=== PATIENT | female | born 1955 | race Caucasian/White ===

== ENCOUNTER 2021-11-22 02:30 | Outpatient (CLI) | payer MEDICARE, SELFPAY ==
--- NOTE | 2021-11-22 08:30 | DI.US_ITS ---
Exam(s) US THYROID EXAM: US THYROID CLINICAL HISTORY: Evaluate partial thyroid; possible nodules,hypothyroidism,s/p surgery,e03.9. TECHNIQUE: Ultrasound thyroid performed using standard protocol. COMPARISON: No exams were available for comparison FINDINGS: This patient has agenesis of the left thyroid lobe. The right thyroid lobe size is upper normal. RIGHT THYROID LOBE: Measures 1.8 cm AP x 2.0 cm wide x 4.8 cm craniocaudal There are 2 findings in the right lobe, both above the midline. Both are benign appearance. The 1st is what is probably a small colloid cyst measuring 0.3 x 0.2 x 0.2 cm The 2nd finding is a solid nodule measuring 0.5 x 0.3 x 0.4 cm This nodule is solid-2 points This nodule exhibits smooth margins-0 points This nodule is wider than taller in the transverse plane-0 points This nodule exhibits isoechoic solid component-1 point This nodule does not contain internal echogenic foci-1 point Therefore, total points for this nodule =3 Therefore this nodule is TiRads 3 category. LYMPH NODES: No significant adenopathy. IMPRESSION: 1. Benign-appearing 0.5 x 0.3 x 0.4 cm solid nodule in the right lobe. TiRads: 3 Appropriate follow-up is repeat ultrasound in 1 year. 2. 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 3. There is no significant lymphadenopathy. DATA REPOSITORY:
== END 2021-11-22 02:50 ==
PROVIDERS: PCP Student in an Organized Health Care Education/Training Program; Visit Provider Student in an Organized Health Care Education/Training Program
DX: E03.9 Hypothyroidism, unspecified (principal); Z98.890 Other specified postprocedural states; E04.1 Nontoxic single thyroid nodule
CPT/HCPCS: 76536

== ENCOUNTER 2021-12-05 03:01 | Outpatient (CLI) | payer MEDICARE, SELFPAY ==
[2021-12-05 08:19] LABS: Abs Immature Grans 0.01 10^3/uL (0.0-0.06); Absolute Basophil Count 0.01 10^3/uL (0.0-0.2); Absolute Eosinophil Count 0.08 10^3/uL (0.0-0.7); Absolute Lymphocyte Count 0.87 10^3/uL (1.2-3.4); Absolute Neutrophil Count 1.68 10^3/uL (1.2-6.7); Basophils % 0.3; Eosinophils % 2.7; HCT 40.6 % (36.0-46.0); HGB 13.3 g/dL (11.2-15.7); Immature Grans % 0.3; Lymphocytes % 29.5; MCH 31.9 pg (27.0-33.0); MCHC 32.8 % (32.0-36.0); MCV 97.4 fL (80-95); MPV 9.8 fL (8.0-11.0); Monocytes % 10.2; Nucleated RBC 0 %; Platelet Count 226 10^3/uL (130-400); RBC 4.17 10^6/uL (3.93-5.22); RDW-SD 46.5 fL; WBC 2.95 10^3/uL (4.4-10.8)
[2021-12-05 08:26] LABS: ESR 1 mm/hr (0-30)
[2021-12-05 09:34] LABS: TSH (W/Ref FT4) 2.29 uIU/mL (0.36-3.74)
[2021-12-05 17:24] LABS: CRP, High Sensitivity <0.34 mg/L (See Note)
[2021-12-05 17:39] LABS: T3,Free 4.3 pg/mL (2.8-5.3)
[2021-12-06 15:07] LABS: Calculated LDL 117 mg/dL (<100); Cholesterol 201 mg/dL (<200); HDL Cholesterol 62 mg/dL (40-60); Triglyceride 113 mg/dL (<150)
== END 2021-12-05 03:02 | disposition home or self-care (01) ==
LOC: LBO 03:01
PROVIDERS: PCP Student in an Organized Health Care Education/Training Program; Visit Provider Student in an Organized Health Care Education/Training Program
DX: E03.9 Hypothyroidism, unspecified (principal); E04.1 Nontoxic single thyroid nodule; M31.6 Other giant cell arteritis; Z86.19 Personal history of other infectious and parasitic diseases
CPT/HCPCS: 36415; 80061; 85652; 86141; 84443; 84481; 85025

== ENCOUNTER → 2022-03-28 00:50 | Outpatient (CLI) | payer MEDICARE, SELFPAY ==
--- OUTSIDE RECORDS SUMMARY | 2022-03-28 01:02 | XMS_ITS | Encounter Summary ---
:1955 Author Organization [facility] Address [address] [place] [address] Care Team Providers Name Role Phone Juanita Prescott MD Primary Care Provider Encounter Details Date Type Department Care Team Description 07/02/2005 Before PRISM Converted [facility] - Debbie Mueller oel Visit ([place]) Maple conversion MD Thomas [address] [address] [address] [place] [address] Social History Tobacco Use Types Packs/Day Years Used Date Never Assessed Sex Assigned at Date Recorded Not on file documented as of this encounter Progress Notes Mike Mueller MD - 11/07/2009 1908 EST DIVISION OF ENDOCRINOLOGY PROGRESS/FOLLOWUP NOTE - 07/02/2005 Ms. 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 She has been followed on thyroid suppression, with shrinkage of this over a period of years. However, she recently felt intermittent jitteriness and ???hyperness,?? and stopped her Cytomel, remaining only on 88 mcg of Synthroid, and felt better. We had a debate as to whether or not she should continue or not, and she would like to try a smoother transition, being on Synthroid alone. I have given her a prescription for 100 mcg rather than 88 mcg to try to for six weeks, and then we will evaluate her symptomatology. She is also here for ult rasonography. She has no symptoms other than the above, with no tachycardia, palpitations, excessive perspiration,etc. OBJECTIVE: On physical exam today, height is 5 feet 2?? inches, blood pressure 134/92, and pulse is 98. She refused to be weighed today. No exophthalmos or proptosis. She has a pretty normal-feeling thyroid gland. No tremor. Normal deep tendon reflexes, with no hung-up relaxation phase. Normal skin temperature, texture and moisture. She has a multinodular goiter and thyroiditis, and a previously-biopsied right lobe with congenital absence of the left lobe. Her last thyroid tests done in December showed that her T3 was slightly elevated at 189 ng/dl (this is not unusual for patients taking T3). Her T4 was in the normal range at 0.7 mcg/dl (normal in that lab was 0.58-1.7), with a TSH which is likewise normal at 1.81 micro international units/mL. Repeat ultrasound today shows that there is basically not much difference in her thyroid,except for it getting a little bit smaller. Even the nodules are smaller than previously noted. The right lobe measures 4.3 x 1.5 x 1.4 cm, with multiple small, hypoechoic areas within them measuring less than 0.8cm. The left lobe is not seen. The largest and most dominant nodule measures 0.8 cm. This, compared t o the previous study, shows that the gland is somewhat smaller. It measured 6.4 x 1.5 x 1.7 cm on nosuppression. The nodules are basically unchanged. PLAN: At this point, we will see how she does on T4 alone. We will talk in about six weeks, after she has repeat blood tests, to determine if she will stay on T4 alone or go back on the combination of T4 and T3. Signed by Mike Mueller MD 07/15/2005 12:28 Christine Mueller MDNov[facility] Health Presbyterian Medical CenterAssociate Professor of MedicineMike Mueller MD Mike Mueller MD [facility] core stripper D: - Mike Mueller MD P - sa Job ID: Document ID: [id number] cc: MD Brendan Jiménez PA documented in this encounter Plan of Treatment Not on filedocumented as of this encounter Visit Diagnoses Not on filedocumented in this encounter Care Teams Hospice Aide Relationship Specialty Start Date End Date Juanita Prescott MD PCP - General 11/01/[address] [place] [phone] documented as of this encounter
--- OUTSIDE RECORDS SUMMARY | 2022-03-28 01:02 | XMS_ITS | Encounter Summary ---
:1955 Author Organization [facility] Address [address] [place] [address] Care Team Providers Name Role Phone Juanita Prescott MD Primary Care Provider Encounter Details Date Type Department Care Team Description 09/11/2010 Abstract Used for ABSTRACTING Data Juanita Prescott MD [phone] [address] [place], [place] [phone] (Wo rk) Social History Tobacco Use Types Packs/Day Years Used Date Never Assessed Sex Assigned at Date Recorded Not on file documented as of this encounter Plan of Treatment Not on filedocumented as of this encounter Visit Diagnoses Not on filedocumented in this encounter Historical Medications This list may reflect changes made after this encounter. Medication Sig Dispensed Refills Start Date End Date aspirin 81 mg EC tablet Take 81 mg by mouth 0 daily. ERGOCALCIFEROL, VITAMIN Take 1 Tab by mouth 2 0 0 09/11/2010 D2, (VITAMIN D ORAL) times daily. B Complex Vitamins Take 1 Tab by mouth 0 09/11/19 11 (VITAMIN B COMPLEX) Tab daily. added in this encounter Care Teams Caving Guide Relationship Specialty Start Date End Date Juanita Prescott MD PCP - General 11/01/09 [address] [place] [phone] documented as of this encounter
--- OUTSIDE RECORDS SUMMARY | 2022-03-28 01:02 | XMS_ITS | Encounter Summary ---
:1955 Author Organization [facility] Address [address] [place] [address] Care Team Providers Name Role Phone Juanita Prescott MD Primary Care Provider Encounter Details Date Type Department Care Team Description 04/23/2004 Hospital Encounter [facility] - Mike Mueller MD [address] [address] [address] [place] [address] (Wo rk) Social History Tobacco Use Types Packs/Day Years Used Date Never Assessed Sex Assigned at Date Recorded Not on file documented as of this encounter Plan of Treatment Not on filedocumented as of this encounter Procedures Procedure Name Priority Date/Time Associated Diagnosis Comme nts T3, TOTAL Routine 04/23/2004 13:40 EDT Results for this procedure are i n the results section . TSH Routine 04/23/2004 13:40 EDT Results for this procedure are i n the results section . T4 FREE Routine 04/23/2004 13:40 EDT Results for this procedure are i n the results section . documented in this encounter Results TSH (04/23/2004 13:40 EDT) Pathologist Sig nature TSH 0.69 0.35 - 5.50 uIU/ml [facility] Specimen Performing Organization Address City/State/ZIP Code Phon e Number [facility] [address] [place] [address] SERVICES [facility] [address] [place] [address] T3, TOTAL (04/23/2004 13:40 EDT) Pathologist Sig nature T3, Total 136 60 - 181 ng/dl [facility] Specimen Performing Organization Address City/[facility] Code Phon e Number [facility] [address] [place] [address] SERVICES [facility] [address] [place] [address] T4 FREE (04/23/2004 13:40 EDT) Pathologist Sig nature Free T4 1.0 0.8 - 1.8 ng/dl [facility] Specimen Performing Organization Address City/[facility] Phon e Number [facility] [address] [place] [address] SERVICES [facility] [address] [place] [address] documented in this encounter Visit Diagnoses Not on filedocumented in this encounter Care Teams Slug Press Operator Relationship Specialty Start Date End Date Juanita Prescott MD PCP - General 11/01/[address] [place] [phone] documented as of this encounter
--- OUTSIDE RECORDS SUMMARY | 2022-03-28 01:02 | XMS_ITS | Encounter Summary ---
:1955 Author Organization [facility] Address [address] [place] [address] Care Team Providers Name Role Phone Unavailable Primary Care Provider Unavailable Encounter Details Date Type Department Care Team Description 01/31/2005 Hospital Encounter [facility] - Julia Pan, ROMAN Other [address] [facility] [address] [place], [place] [phone] [place] [phone] Social History Tobacco Use Types Packs/Day Years Used Date Never Assessed Sex Assigned at Date Recorded Not on file documented as of this encounter Discharge Disposition Disposition Code Departure Means Destination Auto Discharge documented in this encounter Plan of Treatment Not on filedocumented as of this encounter Visit Diagnoses Not on filedocumented in this encounter
--- OUTSIDE RECORDS SUMMARY | 2022-03-28 01:02 | XMS_ITS | Encounter Summary ---
:1955 Author Organization [facility] Address [address] [place] [address] Care Team Providers Name Role Phone Juanita Prescott MD Primary Care Provider Encounter Details Date Type Department Care Team Description 12/03/2007 Results Only [facility] - Kev Singh MD conversion [address] [place] [phone] Social History Tobacco Use Types Packs/Day Years Used Date Never Assessed Sex Assigned at Date Recorded Not on file documented as of this encounter Plan of Treatment Not on filedocumented as of this encounter Procedures Procedure Name Priority Date/Time Associated Diagnosis Comme [facility] SURGICAL PATHOLOGY Routine 12/03/2007 0:00 EDT Re sults for this procedure are i n the results section. documented in this encounter Results SURGICAL PATHOLOGY (12/03/2007 0:00 EDT) Pathology Report: SURGICAL PATHOLOGY REPORT [facility] Reports generated via electronic interface contain wes ginal data; LAB however they are lacking the format of the original re port. Caution should be taken when reading/interpreting unfo rmatted reports. Name: ? ME BARBIE LAM ? Accession #: ? [id number] ? : ? 1955 (Age: 52) ??F ? Collect Date: ? 12/03/2007 ? Location: ? [facility] ? Receive Date: ? 008 ? Provider: KARON REINA MD Copy to: ALEXEY GARCIA ? Final Pathologic Diagnosis: A. ?Stomach, body, biopsy: 1. ?Superficial fragments of gastric muco sa without significant abnormality. 2. ? Helicobacter pylori-like organisms are absent on H+E stain. B. ?Gastroesophageal junction, biopsy: 1. ?Squamous mucosa without significant a bnormality. Document reviewed and electronically signed by: rGeta Diggs MD Report ??Date: 12/07/2007 16:40 By the signature above, the attending physician certif ies that he/she has personally conducted a gross and/or microscopic examin ation of the described specimens and rendered or confirmed the above diagnosi s. Specimen(s) Received: A. ?Bx gastric body (#1) B. ? GE junction (#2) Clinical History: ? Persistent GERD Gross Description: ? Received in Hollande' s fixative labelled [place] and gastric body is a murphy-pink 0.3 x 0.2 x 0. 2 cm soft tissue fragment. ??The specimen is entirely submitted as (A). Received in Hollande's fixative labelled [place] and GE junction is a murphy-pink 0.2 x 0.2 x 0.2 cm soft tissue fragment. ??Th e specimen is entirely submitted as (B). ??(Fredy Zheng/doroteo End of Report Specimen Performing Organization Address City/State/ZIP Code Phon e Number [facility] [address] [place] [address] SERVICES [facility] [address] [place] [address] documented in this encounter Visit Diagnoses Not on filedocumented in this encounter Care Teams Teacher Of The Deaf Relationship Specialty Start Date End Date Juanita Prescott MD PCP - General 11/01/[address] [place] [phone] documented as of this encounter
--- OUTSIDE RECORDS SUMMARY | 2022-03-28 01:02 | XMS_ITS | Encounter Summary ---
:1955 Author Organization [facility] Address [address] [place] [address] Care Team Providers Name Role Phone Juanita Prescott MD Primary Care Provider Encounter Details Date Type Department Care Team Description 08/28/2006 Hospital Encounter [facility] - Weston Watson MD [address] [address] [address] [place] [address] (Wo rk) Social History Tobacco Use Types Packs/Day Years Used Date Never Assessed Sex Assigned at Date Recorded Not on file documented as of this encounter Plan of Treatment Not on filedocumented as of this encounter Procedures Procedure Name Priority Date/Time Associated Diagnosis Comme nts T3, TOTAL Routine 08/28/2006 12:33 EST Results for this procedure are i n the results section . TSH Routine 08/28/2006 12:33 EST Results for this procedure are i n the results section . T4 FREE Routine 08/28/2006 12:33 EST Results for this procedure are i n the results section . documented in this encounter Results TSH (08/28/2006 12:33 EST) Pathologist Sig nature TSH 1.34 0.35 - 5.00 uIU/mL [facility] Specimen Performing Organization Address City/State/ZIP Code Phon e Number [facility] [address] [place] [address] SERVICES [facility] [address] [place] [address] T3, TOTAL (08/28/2006 12:33 EST) Pathologist Sig nature T3, Total 105 60 - 181 ng/dL [facility] Specimen Performing Organization Address City/[facility]/ZIP Code Phon e Number [facility] [address] [place] [address] SERVICES [facility] [address] [place] [address] T4 FREE (08/28/2006 12:33 EST) Pathologist Sig nature Free T4 1.0 0.8 - 1.8 ng/dL [facility] Specimen Performing Organization Address City/[facility] Code Phon e Number [facility] [address] [place] [address] SERVICES [facility] [address] [place] [address] documented in this encounter Visit Diagnoses Not on filedocumented in this encounter Care Teams Adolescent Counselor Relationship Specialty Start Date End Date Juanita Prescott MD PCP - General 11/01/[address] [place] [phone] documented as of this encounter
--- OUTSIDE RECORDS SUMMARY | 2022-03-28 01:02 | XMS_ITS | Encounter Summary ---
:1955 Author Organization [facility] Address [address] [place] [address] Care Team Providers Name Role Phone Unavailable Primary Care Provider Unavailable Encounter Details Date Type Department Care Team Description 01/18/2008 Hospital Encounter [facility] - Mike Mueller MD [address] [address] [address] [place] [phone] (Wo rk) Social History Tobacco Use Types Packs/Day Years Used Date Never Assessed Sex Assigned at Date Recorded Not on file documented as of this encounter Discharge Disposition Disposition Code Departure Means Destination Auto Discharge documented in this encounter Plan of Treatment Not on filedocumented as of this encounter Procedures Procedure Name Priority Date/Time Associated Diagnosis Comme nts T3, TOTAL Routine 11/08/2008 11:14 Results for this EST procedure are i n the results section. TSH Routine 11/08/2008 11:14 Results for this EST procedure are i n the results section. THYROID ANTIBODIES Routine 11/08/2008 11:14 Resul ts for this EST procedure are i n the results section. T4 FREE Routine 11/08/2008 11:14 Results for this EST procedure are i n the results section. documented in this encounter Results THYROID ANTIBODIES (11/08/2008 11:14 EST) Pathologist Sig nature Thyroglobulin Ab <20 0 - 40 IU/mL [facility] Thyroid Peroxidase Ab <10 <35 IU/mL [facility] Specimen Performing Organization Address City/State/ZIP Code Phon e Number [facility] [address] [place] [address] SERVICES [facility] [address] [place] [address] TSH (11/08/2008 11:14 EST) Pathologist Sig nature TSH 3.46 0.35 - 5.00 uIU/ml [facility] Specimen Performing Organization Address City/[facility]/ZIP Code Phon e Number [facility] [address] [place] [address] SERVICES [facility] [address] [place] [address] T3, TOTAL (11/08/2008 11:14 EST) Pathologist Sig nature T3, Total 94 60 - 181 ng/dL [facility] Specimen Performing Organization Address [facility] Phon e Number [facility] [address] [place] [address] SERVICES [facility] [address] [place] [address] T4 FREE (11/08/2008 11:14 EST) Pathologist Sig nature Free T4 1.1 0.8 - 1.8 ng/dL [facility] Specimen Performing Organization Address City/[facility]/ZIP Code Phon e Number [facility] [address] [place] [address] SERVICES [facility] [address] [place] [address] documented in this encounter Visit Diagnoses Not on filedocumented in this encounter
--- OUTSIDE RECORDS SUMMARY | 2022-03-28 01:02 | XMS_ITS | Encounter Summary ---
:1955 Author Organization [facility] Address [address] [place] [address] Care Team Providers Name Role Phone Juanita Prescott MD Primary Care Provider Encounter Details Date Type Department Care Team Description 03/15/2003 Hospital Encounter [facility] - Mike Mueller MD [address] [address] [address] [place] [address] (Wo rk) Social History Tobacco Use Types Packs/Day Years Used Date Never Assessed Sex Assigned at Date Recorded Not on file documented as of this encounter Plan of Treatment Not on filedocumented as of this encounter Procedures Procedure Name Priority Date/Time Associated Diagnosis Comme nts THYROID AB Routine 03/15/2003 16:16 EDT Results for this procedure are i n the results section . TSH Routine 03/15/2003 16:16 EDT Results for this procedure are i n the results section . T4 FREE Routine 03/15/2003 16:16 EDT Results for this procedure are i n the results section . documented in this encounter Results TSH (03/15/2003 16:16 EDT) Pathologist Sig nature TSH 2.05 0.35 - 5.50 uIU/ml [facility] Specimen Performing Organization Address City/State/ZIP Code Phon e Number [facility] [address] [place] [address] SERVICES [facility] [address] [place] [address] THYROID AB (03/15/2003 16:16 EDT) Pathologist Sig nature Microsomal Ab <100 <100 Dils [facility] Thyroglobulin Ab <10 <10 Dils [facility] Specimen Performing Organization Address City/[facility]/ZIP Code Phon e Number [facility] [address] [place] [address] SERVICES [facility] [address] [place] [address] T4 FREE (03/15/2003 16:16 EDT) Pathologist Sig nature Free T4 1.0 0.8 - 1.8 ng/dl [facility] Specimen Performing Organization Address City/[facility]/ZIP Code Phon e Number [facility] [address] [place] [address] SERVICES [facility] [address] [place] [address] documented in this encounter Visit Diagnoses Not on filedocumented in this encounter Care Teams Appraiser Auditor Relationship Specialty Start Date End Date Juanita Prescott MD PCP - General 11/01/09 [address] [place] [phone] documented as of this encounter
--- OUTSIDE RECORDS SUMMARY | 2022-03-28 01:02 | XMS_ITS | Encounter Summary ---
:1955 Author Organization [facility] Address [address] [place] [address] Care Team Providers Name Role Phone Unavailable Primary Care Provider Unavailable Encounter Details Date Type Department Care Team Description 06/20/2004 Hospital Encounter [facility] - Mike Mueller MD [address] [address] [address] [place] [phone] (Wo rk) Social History Tobacco Use Types Packs/Day Years Used Date Never Assessed Sex Assigned at Date Recorded Not on file documented as of this encounter Discharge Disposition Disposition Code Departure Means Destination Auto Discharge documented in this encounter Plan of Treatment Not on filedocumented as of this encounter Procedures Procedure Name Priority Date/Time Associated Diagnosis Comme nts FUNGAL CULTURE, Routine 01/31/2005 13:25 Results for this SKIN, HAIR OR NAIL EDT procedure are in the results section. documented in this encounter Results FUNGAL CULTURE, SKIN, HAIR OR NAIL (01/31/2005 13:25 EDT) Specimen Description Nail [facility] Result Mixed moulds, not [facility] Dermatophytes, LAB consult laboratory for further evaluation. Report Status Final [facility] [id number] [facility] Specimen Performing Organization Address City/State/ZIP Code Phon e Number [facility] [address] [place] [address] SERVICES [facility] [address] [place] [address] documented in this encounter Visit Diagnoses Not on filedocumented in this encounter
--- OUTSIDE RECORDS SUMMARY | 2022-03-28 01:02 | XMS_ITS | Encounter Summary ---
:1955 Author Organization [facility] Address [address] [place] [address] Care Team Providers Name Role Phone Juanita Prescott MD Primary Care Provider Encounter Details Date Type Department Care Team Description 12/05/2021 Lab Requisition [facility] Outr Resulting Lab, Pathology & Laboratory Provider [facility] [address] [place], [place] [phone] Social History Tobacco Use Types Packs/Day Years Used Date Never Assessed Sex Assigned at Date Recorded Not on file documented as of this encounter Plan of Treatment Not on filedocumented as of this encounter Procedures Procedure Name Priority Date/Time Associated Comments Diagnosis HIGH SENSITIVITY Routine 12/05/2021 8:10 Results for this C-REACTIVE PROTEIN EDT procedure are in (CARDIOVASCULAR the results DISEASE) section. T3 FREE Routine 12/05/2021 8:10 Results for this EDT procedure are i n the results section. documented in this encounter Results T3 FREE (12/05/2021 8:10 EDT) Pathologist Sig nature T3, Free 4.3 2.8 - 5.3 pg/mL [facility] Specimen Blood - Venous blood (substance) Performing Organization Address City/State/ZIP Code Phon e Number [facility] [address] [place] [address] SERVICES HIGH SENSITIVITY C-REACTIVE PROTEIN (CARDIOVASCULAR DISEASE) (12/05/2021 8:10 EDT) High Sensitivity <0.34 See Note [facility] CRP Comment: mg/L [facility] Reference Range: SERVICES ??Low Risk: ? <1.0 mg/L ??Average Risk: ?? 1.0 - 3.0 mg/L ??High Risk: ?>3.0 mg/L ??Indeterminate*: >10.0 mg/L ??*May be an indication of another source of inflamma tion or infection Specimen Blood - Venous blood (substance) Performing Organization Address City/State/ZIP Code Phon e Number [facility] [address] [place] [address] SERVICES documented in this encounter Visit Diagnoses Not on filedocumented in this encounter Care Teams Brand Coordinator Relationship Specialty Start Date End Date Juanita Prescott MD PCP - General 11/01/09 [address] [place] [phone] documented as of this encounter
--- OUTSIDE RECORDS SUMMARY | 2022-03-28 01:02 | XMS_ITS | Encounter Summary ---
:1955 Author Organization [facility] Address [address] [place] [address] Care Team Providers Name Role Phone Juanita Prescott MD Primary Care Provider Encounter Details Date Type Department Care Team Description 04/26/2003 Hospital Encounter [facility] - Mike Mueller MD [address] [address] [address] [place] [address] (Wo rk) Social History Tobacco Use Types Packs/Day Years Used Date Never Assessed Sex Assigned at Date Recorded Not on file documented as of this encounter Plan of Treatment Not on filedocumented as of this encounter Visit Diagnoses Not on filedocumented in this encounter Care Teams Data Assistant Relationship Specialty Start Date End Date Juanita Prescott MD PCP - General 11/01/09 [address] [place] [address] documented as of this encounter
--- OUTSIDE RECORDS SUMMARY | 2022-03-28 01:02 | XMS_ITS | Encounter Summary ---
:1955 Author Organization [facility] Address [address] [place] [address] Care Team Providers Name Role Phone Juanita Prescott MD Primary Care Provider Encounter Details Date Type Department Care Team Description 04/26/2003 Results Only [facility] Mike Mueller, Endocrinology - Dustin guzman MD [address] [facility] [address] [place], [place] [address] [address] [place] [address] (Wo rk) Social History Tobacco Use Types Packs/Day Years Used Date Never Assessed Sex Assigned at Date Recorded Not on file documented as of this encounter Plan of Treatment Not on filedocumented as of this encounter Procedures Procedure Name Priority Date/Time Associated Diagnosis Comme nts TSH Routine 04/26/2003 16:41 EDT Results for this procedure are i n the results section . T4 FREE Routine 04/26/2003 16:41 EDT Results for this procedure are i n the results section . documented in this encounter Results TSH (04/26/2003 16:41 EDT) Pathologist Sig nature TSH 0.48 0.35 - 5.50 uIU/ml [facility] Specimen Performing Organization Address City/State/ZIP Code Phon e Number [facility] [address] [place] [address] SERVICES [facility] [address] [place] [address] T4 FREE (04/26/2003 16:41 EDT) Pathologist Sig nature Free T4 1.2 0.8 - 1.8 ng/dl [facility] Specimen Performing Organization Address City/State/ZIP Code Phon e Number [facility] [address] [place] [address] SERVICES [facility] [address] [place] [address] documented in this encounter Visit Diagnoses Not on filedocumented in this encounter Care Teams Livestock Laborer Relationship Specialty Start Date End Date Juanita Prescott MD PCP - General 11/01/09 [address] [place] [address] documented as of this encounter
--- OUTSIDE RECORDS SUMMARY | 2022-03-28 01:02 | XMS_ITS | Encounter Summary ---
:1955 Author Organization [facility] Address [address] [place] [address] Care Team Providers Name Role Phone Unavailable Primary Care Provider Unavailable Encounter Details Date Type Department Care Team Description 05/25/2004 - Hospital Encounter [facility] Mike Mueller 05/26/2004 Radiology - [facility] MD Thomas La Salle [address] [facility] [address] [place] [address] [facility] [phone] [place] [address] Social History Tobacco Use Types Packs/Day Years Used Date Never Assessed Sex Assigned at Date Recorded Not on file documented as of this encounter Discharge Disposition Disposition Code Departure Means Destination Home or Self Care documented in this encounter Plan of Treatment Not on filedocumented as of this encounter Procedures Procedure Name Priority Date/Time Associated Diagnosis Comme nts THYROID AB Routine 06/20/2004 9:45 EDT Results for this procedure are i n the results section. T3, TOTAL Routine 06/20/2004 9:45 EDT Results for this procedure are i n the results section. TSH Routine 06/20/2004 9:45 EDT Results for this procedure are i n the results section. T4 FREE Routine 06/20/2004 9:45 EDT Results for this procedure are i n the results section. RAD US GUIDANCE Routine 05/25/2004 15:19 Results for this BIOPSY FNA THYROID EDT procedure are in the results section. documented in this encounter Results TSH (06/20/2004 9:45 EDT) Pathologist Sig nature TSH 0.81 0.35 - 5.50 uIU/ml [facility] Specimen Performing Organization Address City/State/ZIP Code [facility] e Number [facility] [address] [place] [address] SERVICES [facility] [address] [place] [address] THYROID AB (06/20/2004 9:45 EDT) Pathologist Sig nature Microsomal Ab <100 <100 Dils [facility] Thyroglobulin Ab <10 <10 Dils [facility] Specimen Performing Organization Address City/[facility]/ZIP Code Phon e Number [facility] [address] [place] [address] SERVICES [facility] [address] [place] [address] T3, TOTAL (06/20/2004 9:45 EDT) Pathologist Sig nature T3, Total 158 60 - 181 ng/dl [facility] Specimen Performing Organization Address [facility] Code Phon e Number [facility] [address] [place] [address] SERVICES [facility] [address] [place] [address] T4 FREE (06/20/2004 9:45 EDT) Pathologist Sig nature Free T4 1.2 0.8 - 1.8 ng/dl [facility] Specimen Performing Organization Address [facility] Phon e Number [facility] [address] [place] [address] SERVICES [facility] [address] [place] [address] RAD US GUIDANCE BIOPSY FNA THYROID (05/25/2004 15:19 EDT) Anatomical Region Laterality Modality Other Specimen Narrative [facility] - 05/09/2009 17 :04 EDT U/S GUIDED THYROID BX W/SEDATION- ??CONGENITAL ABSENCE OF LT LOBE. RT L OBE ? INCREASE SIZE OF NODULE (COMPLEX) ?(STRAIGHT TO RADIOLOGY) ULTRASOUND GUIDED THYROID BIOPSY 4 FINDINGS: Scans of the thyroid show sandra ral hypoechoic nodules containing solid material in the lower right thyroi d lobe. The outside thyroid gland study suggested that these hypoechoic re gions were part of a larger nodule. That does not appear to be the c ase on today's examination. These appear to be separate lesions. One of th e lesions in the medial portion of the lower pole of the right thyroid l obe was localized and a total of 9 passes were made into this nodule, 6 u sing 25 gauge spinal needles and 3 using 22 gauge spinal needles. The mat erial was given to cytology. The initial impression of the material was t hat it was likely a hemorrhagic cyst. No complications were encountered. IMPRESSION: Ultrasound guided FNA of rig ht lower pole thyroid nodule having cystic areas, but also containing solid material. A hemorrhagic cyst is a possibility for ea ch of these nodules. See above. D 05/25/04 T 05/28/04 /axel Procedure Note Cayetano Menard, DO - 05/09/2009 U/S GUIDED THYROID BX W/SEDATION- CONGEN ITAL ABSENCE OF LT LOBE. RT L OBE ? INCREASE SIZE OF NODULE (COMPLEX) (STRAIGHT TO RADIOLOGY) ULTRASOUND GUIDED THYROID BIOPSY 4 FINDINGS: Scans of the thyroid show sandra ral hypoechoic nodules containing solid material in the lower right thyroi d lobe. The outside thyroid gland study suggested that these hypoechoic re gions were part of a larger nodule. That does not appear to be the c ase on today's examination. These appear to be separate lesions. One of th e lesions in the medial portion of the lower pole of the right thyroid l obe was localized and a total of 9 passes were made into this nodule, 6 u sing 25 gauge spinal needles and 3 using 22 gauge spinal needles. The mat erial was given to cytology. The initial impression of the material was t hat it was likely a hemorrhagic cyst. No complications were encountered. IMPRESSION: Ultrasound guided FNA of rig ht lower pole thyroid nodule having cystic areas, but also containing solid material. A hemorrhagic cyst is a possibility for ea ch of these nodules. See above. D 05/25/04 T 05/28/04 /axel Performing Organization Address City/State/ZIP Code Phon e Number [facility] [address] [facility] [address] [facility] [address] [place], [place] [address] documented in this encounter Visit Diagnoses Not on filedocumented in this encounter
--- OUTSIDE RECORDS SUMMARY | 2022-03-28 01:02 | XMS_ITS | Encounter Summary ---
:[address] [facility] Address [address] [place] [address] Care Team Providers Name Role Phone Juanita Prescott MD Primary Care Provider Encounter Details Date Type Department Care Team Description 08/22/2005 Before PRISM Converted [facility] - Debbie Mueller oel Visit ([place]) Maple conversion MD Thomas [address] [address] [address] [place] [address] Social History Tobacco Use Types Packs/Day Years Used Date Never Assessed Sex Assigned at Date Recorded Not on file documented as of this encounter Progress Notes Mike Mueller MD - 11/09/2009 2118 EST DIVISION OF ENDOCRINOLOGY PROGRESS/FOLLOWUP NOTE - 08/22/2005 SUBJECTIVE: Ms. Briones comes in today. I finally convinced her to stop taking her Cytomel for her hypothyroidism, as it was causing tachycardia. We increased her from 88 to 100 mcg of Synthroid, and the tachycardia has diminished tremendously, but she still feels very tired, and has the other very vague sympt oms that she now admits are probably not due to her thyroid. I feel she will do better on T4 replacement alone rather than on T3, as dictated in her last visit, at which time we elected not to do any blood work until she came back today. OBJECTIVE: She weighs 126, blood pressure is 118/68, and pulse is 100! She has no exophthalmos or proptosis. Nopalpable thyroid tissue and no tremor. Normal deep tendon reflexes with no hung up relaxation phase. ASSESSMENT/PLAN: My impression is that she is euthyroid. I am not sure about her tachycardia. We will assess T4 and TSH in the lab and call her if a change is necessary in her regimen. If everything seems to be normal,I will see her in a year. Signed by Mike Mueller MD 09/17/2005 17:13 Christine Mueller MDFormerly [facility] CenterAssociate Professor of MedicineMike Mueller MD Mike Mueller MD [facility] refuse collector supervisor D: - Mike Mueller MD A - dm Job ID: tape Document ID: [id number] cc: Radha Og MD 08/22/2005 11:11 T3, Total 178 ng/dl Final * 08/22/2005 11:11 T4, Free 0.9 ng/dl 0.8-1.8 Final * 08/22/2005 11:11 TSH 2.20 uIU/m... 0.35-5.50 Final * documented in this encounter Plan of Treatment Not on filedocumented as of this encounter Visit Diagnoses Not on filedocumented in this encounter Care Teams Coat Joiner Lockstitch Relationship Specialty Start Date End Date Juanita Prescott MD PCP - General 11/01/[address] [place] [phone] documented as of this encounter
--- OUTSIDE RECORDS SUMMARY | 2022-03-28 01:02 | XMS_ITS | Encounter Summary ---
:1955 Author Organization [facility] Address [address] [place] [address] Care Team Providers Name Role Phone Juanita Prescott MD Primary Care Provider Encounter Details Date Type Department Care Team Description 05/25/2004 Results Only [facility] - Cayet[place] conversion [address] [facility] [address] [place], [place] [address] [place] [phone] (Wo rk) Social History Tobacco Use Types Packs/Day Years Used Date Never Assessed Sex Assigned at Date Recorded Not on file documented as of this encounter Plan of Treatment Not on filedocumented as of this encounter Procedures Procedure Name Priority Date/Time Associated Diagnosis Comme nts CYTOPATHOLOGY Routine 05/25/2004 0:00 EDT Results for this procedure are i n the results section . documented in this encounter Results CYTOPATHOLOGY (05/25/2004 0:00 EDT) Pathology Report: CYTOPATHOLOGY REPORT [facility] Reports generated via electronic interface contain wes ginal data; however they are lacking the format of the original re port. Caution should be taken when reading/interpreting unfo rmatted reports. Name: ? CAMMY LAM ? Accession #: ? [id number] : ? 1955 (Age: 48) ??F ?Collect Date: ? 05/09 Location: ? RAD ? Receive Date: ? 05/28/2004 Provider: ? CAYETANO Moreira* JENNIFER LUX Copy to: ?CUBA OZUNA MD ? CYTOLOGIC DIAGNOSIS: ? Thyroid, right, fine needle aspiration: - Suggestive of benign thyroid nodule. ??See comment. ? COMMENT: ? The specimen is hypocellular, composed of a few groups of thyroid follicular cells in micro- a nd macrofollicular pattern. ??Abundant watery colloid and siderophages are present in the background. ??Ther e is no inflammation present. ??Paucity of the epithelial component preclud es definitive interpretation, but the cytologic features are s uggestive of a benign thyroid nodule. ??(Dr. Davidson)/coco Document reviewed and electronically signed by: ? Alesha Pastrana MD PhD Report Date: ??05/29/2004 09:35 By the signature above, the attending physician certif ies that he/she has personally conducted a gross and/or microscopic examin ation of the described specimens and rendered or confirmed the above diagnosi s. Specimen Type: ? Right Thyroid, Fine Needle Aspiration Clinical History: ? Multiple cystic nodules RLP; ? CA; clinical aylin gnosis code: ??241.1 ? Rapid Interpretation: ? FNA Rt thyroid: Passes 1-3: ??Scant follicul ar epithelium. ??Rare microfollicles. ??Dense colloid. Passes 4-6: ??Siderophages. ??Dense colloid. ??Scant f ollicular cells. Passes 7-9: ??Siderophages. ??Scant follicular cells. ??Dense colloid. ??Defer to permanents. (Carmelo Friedman MD; 05/25/04) ?? Gross Description: ? 12 fixed prepared slides, 11 air dried prepared slides, and 1 tube of Cytolyt were received and processed. ? End of Report Specimen Performing Organization Address City/State/ZIP Code Phon e Number [facility] [address] [place] [address] SERVICES [facility] [address] [place] [address] documented in this encounter Visit Diagnoses Not on filedocumented in this encounter Care Teams End User Consultant Relationship Specialty Start Date End Date Juantia Prescott MD PCP - General 11/01/09 [address] [place] [address] documented as of this encounter
--- OUTSIDE RECORDS SUMMARY | 2022-03-28 01:02 | XMS_ITS | Encounter Summary ---
:1955 Author Organization [facility] [place] [address] Care Team Providers Name Role Phone Ernestina Daniel DO Primary Care Provider Reason for Referral Consultation (Routine) - Authorized Specialty Diagnoses / Procedures Referred By Contact Refer red To Contact Hematology and Diagnoses Leukopenia, unspecified type Ernestina Daniel, [facility] 3k Oncology [address] [phone] Fax: Referral ID Status Reason Start Expiration Visits Visits Date Date Requested Authorized [id number] Authorized Consult, 03/08/2022 03/08/2023 6 6 Test & Treat PCP Updated and/or Approved Encounter Details Date Type Department Care Team Description 03/08/2022 Transcribe Orders eDH Incoming Laureen Daniel , Referrals Ernestina Ramos DO unspecified type [phone] [place] [phone] Social History Tobacco Use Types Packs/Day Years Used Date Never Assessed Sex Assigned at Date Recorded Not on file documented as of this encounter Plan of Treatment Upcoming Encounters Date Type Specialty Care Team Description 04/03/2022 Office Visit Hematology and Oncology Monique Perea MD [facility] HEMATOLOG[facility] [place], [place] [address] (Wo rk) 06/14/2022 Office Visit Dermatology Terrell Galvez MD [facility] [address] [place], [place] [address] (Wo rk) Scheduled Referrals Name Type Priority Associated Diagnoses Order S chedule Referral to Outpatient Referral Routine Leukopenia, Ordered: Hematology and Unspecified Type 2 Oncology documented as of this encounter Visit Diagnoses Diagnosis Leukopenia, unspecified type documented in this encounter Care Teams Non Cdl Driver Relationship Specialty Start Date End Date Ernestina Daniel DO PCP - General Family Medicine 03/08/[address] [place] [address] documented as of this encounter
--- OUTSIDE RECORDS SUMMARY | 2022-03-28 01:02 | XMS_ITS | Encounter Summary ---
:1955 Author Organization [facility] Address [address] [place] [address] Care Team Providers Name Role Phone Juanita Prescott MD Primary Care Provider Encounter Details Date Type Department Care Team Description 09/27/2005 Before [facility] - Yobany Bridges MD Converted Visit Map conversion 111 [facility] ([place]) [address] [place] [id number] [facility] [place] [phone] (Wo rk) Social History Tobacco Use Types Packs/Day Years Used Date Never Assessed Sex Assigned at Date Recorded Not on file documented as of this encounter Consult Notes Mya Bridges MD - 11/08/2009 0523 EST DIVISION OF RHEUMATOLOGY CONSULTATION - CHIEF COMPLAINT: This is the first visit for this 50-year-old lady, who is seen in consultation for Brendan Jhaveri, with chief complaint of multiple different symptoms, possible fibromyalgia. HISTORY OF PRESENT ILLNESS: Patient says her symptoms began in 1992 when she developed fatigue. She had a lab test that showed her white count was a little low , although subsequent CBCs showed a low-normal white count. Her fatigue has worsened over the years. She then developed joint pains. She says she usually wakes up with sore fingers, in particular her left fifth finger at the DIP which feels hard and tender. She also has a lot of low back pain, does stretching for this and has what sounds like degenerative neck arthritis since the age of 32.She has tried Tylenol and ibuprofen over the counter with perhaps some improvement. She also said she had in 1996 cognitive issues . It was hard to process things . She stated that she is usually a quick learner, but she had trouble learning things at work, learning was going slowly and it was hard to retain things . However, over the past year she feels that cognitively sheis some better. Other symptoms include pressure and aching in her left greater than right calves and muscle spasms in the pretibial regions and in the feet and toes. Her whole body is sensitive to cold . She wears a coat in her house. The tips of her fingers throb and burn with cold and the toes are sensitive. She was seen by [facility] in the past who diagnosed her with fibromyalgia and then in November, diagnosed her with chilblains. However, she says she has not had any chilblain lesions since last year. She also states her nails have changed. They look blue at the bases and redat the tips. Her sleep is poor. She wakes frequently. It is hard to fall back asleep. She tried an over the counter sleep medicine but did not like how it felt, although it did help somewhat and has generally preferred to avoid taking a lot of pills and medications. She also complains that her skin is itchy, even without a rash, especially on the arms, but she also does get rashes. She was apparently seen by contract sheltered workshop supervisor who diagnosed her with eczema and she was given topical medicine for this. Current medications: 1. Synthroid 100 mcg daily. 2. Levbid 75 mcg twice a day for irritable bowel. 3. calcium. 4. magnesium and zinc as needed. ALLERGIES: DROPERIDOL CAUSES NECK AND FACIAL MUSCLE SPASMS. Social history: Reveals she is . Is a part-time scanning clerk and homemaker. She does not smoke. Drinks about one or two alcoholic beverages per week. Has two daughters, lives with one of them at home. Past history reveals a congenitally absent left thyroid lobe and she had a partial thyroidectomy versus nodule removed 1977, also a multinodular goiter and thyroiditis. 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 Lymph node removal age 10. Migraines: Although none recently. Right wrist ganglion cyst removed X 2 and irritable bowel syndrome. Family history: Reveals parents with arthritis of an unknown type. Review of systems is negative for constitutional complaints. In addition to what is listed in HPI her eyes are scratchy, feel like there is something in there. She has been given Patanol drops and ointment without help. She was seen by an eye doctor with no diagnosis, and no other abnormality noted. She does have a lot of visual disturbances with floaters and weird peripheral vision. Occasionalsharp chest pains, told that she had costochondral pain. A lot of cramps, gas and bloating related to irritable bowel syndrome which is being helped by hercurrent medicine. No bleeding or diarrhea. Complains of 5-6 months duration of strong smelling urine despite keeping hydrated. Occasional hand tingling, no numbness. Some restless legs at night. She denies depression. OBJECTIVE: Physical exam reveals blood pressure 122/80, pulse 76, respiration 16. Height 62 and ?? inches. No weight is recorded but the patient looks about average weight for her height. Head and neckreveal pupils equal and reactive, extraocular movements intact. Sclerae clear.Conjunctivae pink. Mucous membranes moist. No oral ulcers. No cervical nodes. She does have erythema over the cheeks without sparing of the nasolabial folds with a couple of telangiectasia and one acne-like lesion resemblingrosacea. Lungs are clear. Heart sounds are regular, no rubs. Abdomen: Soft with epigastric tenderness. No organomegaly or masses. Skin in the arms is slightly dry and a little bit red, with a few excoriations. No other rashes are seen. No nail pitting. No dilated capillaryloops. No digital pitting. Nosclerodactyly. Her spine is nontender. Her C-spine has painful range of motion with mild reduction in range of motion in all directions. Shoulders, elbows and wrists were normal with the exception of asmall ganglion cyst overlying the right wrist. She was tender right thumb MCP, but otherwise the joint appeared normal. The remainder of the MCPs were normal. She was tender over the right fourth PIP but there was no synovitis over any of the PIPs. She had small Heberden's nodes bilateral fifth DIPs with tenderness over the left fifth DIP. She had full range of motion of the hands. There was deformedleft fingernail that looked traumatic with a bit of red skin near the nail base that could representsome eczema. The hips, knees and ankles range well with no evidence of synovitis over the joints. There is bony enlargement left first MTP consistent with degenerative change. Right third MTP was tender but I did not detect any swelling or other evidence of synovitis overthe toes. She was tender over the calf muscles, and especially tender over the pretibial regions, but otherwise these areas appeared normal. The patient had multiple marked positive fibromyalgia tender points bilateral cervical second rib, elbow and rhomboid and occiput regions as well as left knee and left gluteal region for a total of 12 out of 18 tender points. She brought labs with her [facility] from March 27, 2004 showing normal LFTs, calcium, glucose and electrolytes. A white count of 4.2, hemoglobin 14.1, platelets 227,000. From August 22, 2005 she had normal thyroid studies with a total T3 of 178, free T4 0.9, TSH 2.2. IMPRESSION: I think this patient has fibromyalgia, also some mild degenerative or osteoarthritis ofthe fingers. I do not really think she has any other systemic or inflammatory disease to explain or unify all of her symptoms. I do think given some of her symptoms including the Raynaud's type symptoms it would be important to look for an underlying connective tissue disease. PLAN: 1. Check CBC with differential, Sed rate, urinalysis, KTATY, rheumatoid factor, SSA and SSB antibodiesand antiphospholipid testing. Also an x-ray of her hands. Will let her know the results once I get them back. 2. I recommended low impact aerobic exercise regularly and also consider sleep medication. There area variety that can be used for fibromyalgia including tricyclic antidepressants, muscle relaxants such as cyclobenzaprine. Even over the counter medications such as Tylenol PM or an antihistamine such as Benadryl could be used. 3. The patient will follow up with her primary care doctor to decide about instituting these medications, but I did encourage her to pursue exercise in the meantime. 4. She is welcome to follow up with me on an as needed basis. Addendum Labs normal/negative except trace hematuria with innum squamous cells - prob contaminated urine. x-rays reported negative except minimal IP narrowing, but on my review there is minimal OA in right 3rd DIP. No evidence of inflammatory disease. Letter to patient 10/04/05 Signed by Mya Bridges MD 10/04/2005 15:44 Deana Durham MD Mya Bridges MD - Mya Bridges MD P - DD Job ID: [id number] Document ID: [id number] cc: RADHA Mar documented in this encounter Plan of Treatment Not on filedocumented as of this encounter Visit Diagnoses Not on filedocumented in this encounter Care Teams Events Solutions Consultant Relationship Specialty Start Date End Date Juanita Prescott MD PCP - General 11/01/[address] [place] [phone] documented as of this encounter
--- OUTSIDE RECORDS SUMMARY | 2022-03-28 01:02 | XMS_ITS | Encounter Summary ---
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 Ernestina Daniel DO [facility] [address] [place] [id number] Referral ID Status Reason Start Expiration Visits Visits Date Date Requested Authorized [id number] Authorized Consult, 03/08/2022 03/08/2023 6 6 Test & Treat PCP Updated and/or Approved Encounter Details Date Type Department Care Team Description 03/08/2022 Transcribe Orders eDH Incoming Tammi Daniel atro phic disorders of skin; Referrals Ernestina Ramos DO Non-scarring hair loss; [phone] [place], [place] [id number] Social History Tobacco Use Types Packs/Day Years Used Date Never Assessed Sex Assigned at Date Recorded Not on file documented as of this encounter Plan of Treatment Upcoming Encounters Date Type Specialty Care Team Description 04/03/2022 Office Visit Hematology and Oncology Monique Perea MD [facility] 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
--- OUTSIDE RECORDS SUMMARY | 2022-03-28 01:02 | XMS_ITS | Encounter Summary ---
:1955 Author Organization [facility] Address [address] [place] [address] Care Team Providers Name Role Phone Unavailable Primary Care Provider Unavailable Encounter Details Date Type Department Care Team Description 09/27/2005 Hospital Encounter [facility] - Mya Bridges MD [address] [address] [address], [place] [phone] (Wo rk) Social History Tobacco Use Types Packs/Day Years Used Date Never Assessed Sex Assigned at Date Recorded Not on file documented as of this encounter Discharge Disposition Disposition Code Departure Means Destination Auto Discharge documented in this encounter Plan of Treatment Not on filedocumented as of this encounter Procedures Procedure Name Priority Date/Time Associated Comments Diagnosis SSB ANTIBODIES BY MELVIN Routine 09/27/2005 10:35 Results for this EST procedure are i n the results section. SSA ANTIBODIES BY MELVIN Routine 09/27/2005 10:35 Results for this EST procedure are i n the results section. ARTHRITIS 1 Routine 09/27/2005 10:35 Results for this EST procedure are i n the results section. PROFILE ANTIPHOSPHOLIPID Routine 09/27/2005 10:35 Results for this SYNDROME EST procedure are i n the results section. URINE MICROSCOPIC Routine 09/27/2005 10:35 Result s for this EST procedure are i n the results section. URINALYSIS WITH Routine 09/27/2005 10:35 Results for this MICROSCOPIC IF POSITIVE EST proc edure are in the results section. SED RATE Routine 09/27/2005 10:35 Results for this EST procedure are i n the results section. COMPLETE BLOOD COUNT AND Routine 09/27/2005 10:35 Results for this DIFFERENTIAL EST procedure are i n the results section. HAND 2 VIEWS 09/27/2005 10:19 Results for this EST procedure are i n the results section. HAND 2 VIEWS 09/27/2005 10:19 Results for this EST procedure are i n the results section. documented in this encounter Results (ABNORMAL) URINE MICROSCOPIC (09/27/2005 10:35 EST) WBC, UA less than 1 0 - 5 /HPF [facility] RBC, UA 1 to 5 0 - 5 /HPF [facility] Squam Epithel, UA Few (A) NS /HPF [facility] Renal Epithel, UA None seen NS /HPF [facility] Bacteria, UA Innum (A) NS /HPF [facility] Crystals, UA None seen /HPF [facility] Hyaline Casts, UA None seen /LPF [facility] UA Comment Microscopic results [facility] are unreliable on LAB urines unrefrig >2hrs or refrig >8hrs. Specimen Performing Organization Address City/[facility] Code Phon e Number [facility] [address] [phone] SERVICES [facility] [address] [place] [address] (ABNORMAL) URINALYSIS (09/27/2005 10:35 EST) Pathologist Sig nature Color, UA Yellow [facility] Clarity, UA Clear [facility] Glucose, UA Norm NORM [facility] Bilirubin, UA Neg NEG [facility] Ketones, UA Neg NEG [facility] Specific [place], 1.020 1.005 - 1.02 [facility] Urine Blood, UA Trace (A) NEG [facility] pH, UA 7.5 5.0 - 9.0 [facility] Protein, UA Neg NEG [facility] Urobilinogen, UA Norm NORM mg/dL [facility] Nitrite, UA Pos (A) NEG [facility] Leuk Esterase Neg NEG [facility] Specimen Performing Organization Address City/[facility]/ZIP [facility] Phon e Number [facility] [address] [place] [address] SERVICES [facility] [address] [phone] SED. RATE:WESTERGREN (09/27/2005 10:35 EST) Pathologist Sig nature Sed. Rate Chris 7 0 - 30 mm/hr [facility] Specimen Performing Organization Address City/State/ZIP Code Phon e Number [facility] [address] [place] [address] SERVICES [facility] [address] [place] [address] SS-B/LA ANTIBODY, IGG, SERUM (09/27/2005 10:35 EST) Autoantibodies to SS 1.4Unit: U(Note) [facility] B/La -- EXPECTED VALUES -- ? LAB (Ref Range) <25.0 ? Test Performed by: ? [facility] Dpt of Lab Med a nd Pathology ? [address], [place] [address] ? Paper Cutter Operator: Gage Bolanos M.D. ? Specimen Performing Organization Address [facility]/State/ZIP Code Phon e Number [facility] [address] [place] [address] SERVICES [facility] [address] [place] [address] SS-A/RO ANTIBODY, IGG, SERUM (09/27/2005 10:35 EST) Autoantibodies to SS <1.0Unit: U(Note) [facility] A/Ro -- EXPECTED VALUES -- ? LAB (Ref Range) <25.0 ? Test Performed by: ? [facility] Dpt of Lab Med a nd Pathology ? [address], [place] [address] ? Paper Cutter Operator: Gage Bolanos M.D. ? Specimen Performing Organization Address City/State/ZIP Code Phon e Number [facility] [address] [place] [address] SERVICES [facility] [address] [place] [address] (ABNORMAL) HEMAGRAM AND DIFFERENTIAL (09/27/2005 10:35 EST) Pathologist Sig nature WBC 6.10 4.0 - 12.4 K/cmm [facility] RBC 4.26 3.86 - 5.04 M/cmm [facility] Hemoglobin 13.5 11.6 - 15.2 gm/dl [facility] HCT 39.3 34.9 - 44.4 % [facility] MCV 92 81 - 98 fl [facility] MCH 31.8 26.7 - 33.3 pg [facility] MCHC 34.4 32.1 - 35.9 gm/dl [facility] PLT 291 141 - 320 K/cmm [facility] RDW-CV 13.5 11.7 - 14.6 % [facility] Neutrophils 77.9 45.5 - 79.7 % [facility] Lymphocytes 16.0 15.0 - 46.8 % [facility] Monocytes 5.0 1.8 - 12.0 % [facility] Eosinophils 0.6 0.6 - 6.9 % [facility] Basophils 0.5 0.2 - 1.4 % [facility] ABS Neutrophils 4.75 2.20 - 8.85 K/cmm [facility] ABS Lymphs 0.98 (L) 1.09 - 3.30 K/cmm [facility] ABS Monocytes 0.31 0.1 - 0.8 K/cmm [facility] ABS Eosinophils 0.04 0.03 - 0.61 K/cmm [facility] ABS Basophils 0.03 0.01 - 0.11 K/cmm [facility] Type of Diff: Automated [facility] Specimen Performing Organization Address City/State/ZIP Code Phon e Number [facility] [address] [place] [address] [facility] [address] [place] [address] PROFILE ANTIPHOSPHOLIPID SYNDROME (09/27/2005 10:35 EST) IgM Cardiolipin Ab <4.0Unit: MPL(Note) [facility] Interpretation: Negative (<1 0.0 MPL) ? LAB Please note change in refere nce values effective 04/16/2005. ? IgG Cardiolipin Ab <4.0Unit: GPL(Note) [facility] Interpretation: Negative (<1 0.0 GPL) ? LAB Please note change in refere nce values effective 04/16/2005. ? Test Performed by: ? [facility] Dpt of Lab Med a nd Pathology ? [address], [place] [address] ? Paper Cutter Operator: Gage Bolanos M.D. ? Dilute Viper Venom 30.7 25.8 - 39.1 [facility] Comment: secs LAB Results must be interpreted with caution if the patient is on oral anticoagulant, direct thrombin inhibitors or heparin. PTT 26Comment: 20 - 35 secs [facility] Therapeutic Heparin LAB range: 70-105 seconds Patient PTT50 Test cancelled, 20 - 35 secs [facility] normal APTT LAB Specimen Performing Organization Address City/[facility]/ZIP Code Phon e Number [facility] [address] [place] [address] SERVICES [facility] [address] [place] [address] ARTHRITIS 1 (09/27/2005 10:35 EST) Pathologist Sig nature Anti Nuclear Ab <40 0 - 40 Dils [facility] Rheumatoid Factor <20 <20 IU/ml [facility] Specimen Performing Organization Address [facility]/ZIP Code Phon e Number [facility] [address] [place] [address] SERVICES [facility] [address] [place] [address] HAND 2 VIEWS (09/27/2005 10:19 EST) Anatomical Region Laterality Modality Other Specimen Narrative [facility] - 04/07/2009 3: 11 EDT FINGER PAIN BILATERAL HANDS: 09/27/2005 CLINICAL HISTORY: Finger pain. FINDINGS: A single view of each hand is received. ??There may be minimal interphalangeal joint space narrowing on both sides, but there are no significant changes of osteoarthritis. ? ?There are no erosive changes and there is no significant bony prolife ration involving any joint. There is no soft tissue abnormality. ??A lignment is normal. Mineralization is also relatively normal . IMPRESSIONS: No conclusive evidence of osteoarthriti s or other abnormality. /tns Procedure Note Nancy Boudreaux MD - 04/07/2009 FINGER PAIN BILATERAL HANDS: 09/27/2005 CLINICAL HISTORY: Finger pain. FINDINGS: A single view of each hand is received. There may be minimal interphalangeal joint space narrowing on both sides, but there are no significant changes of osteoarthritis. T here are no erosive changes and there is no significant bony prolife ration involving any joint. There is no soft tissue abnormality. Ali gnment is normal. Mineralization is also relatively normal . IMPRESSIONS: No conclusive evidence of osteoarthriti s or other abnormality. /tns Performing Organization Address [facility] Phon e Number [facility] [address] [facility] [address] [facility] [address] [place], [place] [address] HAND 2 VIEWS (09/27/2005 10:19 EST) Anatomical Region Laterality Modality Other Specimen Narrative [facility] - 04/07/2009 3: 11 EDT FINGER PAIN BILATERAL HANDS: 09/27/2005 CLINICAL HISTORY: Finger pain. FINDINGS: A single view of each hand is received. ??There may be minimal interphalangeal joint space narrowing on both sides, but there are no significant changes of osteoarthritis. ? ?There are no erosive changes and there is no significant bony prolife ration involving any joint. There is no soft tissue abnormality. ??A lignment is normal. Mineralization is also relatively normal . IMPRESSIONS: No conclusive evidence of osteoarthriti s or other abnormality. /tns Procedure Note Nancy Boudreaux MD - 04/07/2009 FINGER PAIN BILATERAL HANDS: 09/27/2005 CLINICAL HISTORY: Finger pain. FINDINGS: A single view of each hand is received. There may be minimal interphalangeal joint space narrowing on both sides, but there are no significant changes of osteoarthritis. T here are no erosive changes and there is no significant bony prolife ration involving any joint. There is no soft tissue abnormality. Ali gnment is normal. Mineralization is also relatively normal . IMPRESSIONS: No conclusive evidence of osteoarthriti s or other abnormality. /tns Performing Organization Address [facility] Code Phon e Number [facility] [address] [facility] [address] [facility] [address] [place], [place] [address] documented in this encounter Visit Diagnoses Not on filedocumented in this encounter
--- OUTSIDE RECORDS SUMMARY | 2022-03-28 01:02 | XMS_ITS | Encounter Summary ---
:1955 Author Organization [facility] Address [address] [place] [address] Care Team Providers Name Role Phone Unavailable Primary Care Provider Unavailable Encounter Details Date Type Department Care Team Description 07/07/2006 Before [facility] - Olivier Cheema Converted Visit [facility] MD Sammy ([place]) [address] [facility] [address] [place] [address] [address] [place] [address] (Wo rk) Social History Tobacco Use Types Packs/Day Years Used Date Never Assessed Sex Assigned at Date Recorded Not on file documented as of this encounter Plan of Treatment Not on filedocumented as of this encounter Visit Diagnoses Evaluation - Olivier Cheema MD - 09/24/2009 8840 EST [facility] NEW PATIENT EVALUATION - 07/07/2006 PROBLEM: Abdominal pain associated with nausea, vomiting, and diarrhea. SUBJECTIVE: The patient is a 50-year-old white female who states that last December she had a bout of nausea, vomiting and diarrhea that lasted for 2 or 3 weeks and then took a long time to resolve. Even in the period of resolution, she had long periods of feeling nauseous. She does state at that time she had some low-grade fevers. She did, however, feel better over the summer months and things were getting better, and about 3 or 4 weeks ago had another similar bout that lasted for about a week and now, by taking Peptoit seems to help a lot. She also is complaining of some heartburn-type symptoms and has tried Nexium, which seemed to help somewhat, but is also worried that this contributes to her diarrhea. She has taken acidophilus and B. fragilis tablets without much help. She initially thought this may be even some food poisoning and she was teated for this, but this has all been negative. Subsequently, the patient has had a gallbladder ultrasound and HIDA scan, both of which have been negative.She had a colonoscopy several weeks ago by Dr. Francisco, which she reports as normal. She does have a h istory of IBS. PAST MEDICAL HISTORY: Significant for multinodular thyroid goiter and IBS. MEDICATIONS: She takes hycosamine, Synthroid, calcium, mag . zinc, B-complex and fish oil. ALLERGY: TO DROPERIDOL. PAST SURGICAL HISTORY: She has had thyroid surgery. She had a lymph node removed, a in 1986, and wrist surgery. FAMILY HISTORY: Significant for heart disease and cancers of unknown type. No bowel cancer that she knows of. SOCIAL HISTORY: Does not smoke. Does drink 1-2 drinks a day, but not every day. REVIEW OF SYSTEMS: Please refer to my intake sheet. This was reviewed with the patient. Of note - the patient has not lost any weight with these symptoms. She does have sort of a lack of appetite. OBJECTIVE: On physical exam, this is an anxious-appearing white female in no acute distress. She is 5 feet 2?? and weighs 126 pounds. Temperature is 98.6, pulse is 88, blood pressure 130/82, respirations 16. Lungs are clear. Cardiac - regular rate and rhythm. HEENT - normocephalic, atraumatic. Scleraeare white. Abdomen -she has some hyperactive bowel sounds, but soft, nontender, and nondistended. She is uncomfortable on palpating the midepigastric area and just to the right of the xiphoid process. Extremities are warm, 2+ pulses. I reviewed her ultrasound and HIDA scan. Both of these are normal. ASSESSMENT: 1. This is a 50-year-old white female with abdominal pain of unclear etiology, associated with nausea, vomiting and diarrhea and some low-grade fevers. PLAN: 1. I discussed with the patient that I do not believe that her discomfort is related to the gallbladder, especially in that the ultrasound and HIDA scan are normal. Her symptoms are not typical for biliary dyskinesia or cholecystitis. 2. However, I do wonder if she has some intestinal bacterial overgrowthand she may be benefitted by a short course of Flagyl. I therefore recommended 500 mg of Flagyl 3 times a day for a week course tosee if this has any improvement. 3. In the meantime, I did recommend that she continue her taking the acidophilus, the B. fragilis tablets and also eating yogurt with live active cultures. 4. The patient can followup if she has no improvement in her symptoms. Signed by Olivier Cheema MD 07/11/2006 10:13 Uday Frazier MD Olivier Cheema MD - MD Anette A - [place] Job ID: [id number] Document ID: [id number] cc: documented in this encounter
--- OUTSIDE RECORDS SUMMARY | 2022-03-28 01:02 | XMS_ITS | Encounter Summary ---
:1955 Author Organization [facility] Address [address] [place] [address] Care Team Providers Name Role Phone Unavailable Primary Care Provider Unavailable Encounter Details Date Type Department Care Team Description 11/08/2008 Before [facility] Converted [facility] - Debbie Mueller Visit ([place]) [facility] MD Thomas [address] [address] [place] [address] [address] [place] [address] Social History Tobacco Use Types Packs/Day Years Used Date Never Assessed Sex Assigned at Date Recorded Not on file documented as of this encounter Progress Notes Mike Mueller MD - 03/07/2009 1034 EDT DIVISION OF ENDOCRINOLOGY PROGRESS/FOLLOWUP NOTE - 11/08/2008 Cammy Marroquin comes in today for evaluation of a multinodular goiter. The left lobe was removed surgically and we have been following the right side to be sure that it does not really hypertrophy very much. She has been off thyroid medication since her surgery and was wondering if there are anyother hormones that might be implicated in some of the bizarre symptoms that she has which do not seem to be thyroid related. She has had diarrhea. She has had headache. She just really does not feel well which I do not think is related to the thyroid. Unfortunately only a TSH was done on her visit [facility] and I do not have a free T4; however, the TSH was in the normal range done a month or so ago which is 3.3. When we last studied her here in [place] her TSH was 1.34, T3 105 ng/dL, free T4 1 ng/dL. She does not have any tremor. Her weight has been stable although she refused to be weighed today. No excessive perspiration. No difficulty swallowing nor cough although she has a tender spot a little bit to the lateral side of the trachea on the right. Her physical shows that her weight was refused, pulse 80, blood pressure 142/96. The patient has a normal amount of thyroid tissue on the right. I do not feel any on the left. She has a thyroidectomy scar. She has no tremor. Normal deep tendon reflexes with no hung-up relaxation phase. Normal skin temperature, texture, and moisture. I have done an ultrasound today to compare it to a previous study. The ultrasound is done by the [employer] system. The right lobe measures 4.38 x 1.41 x 1.56. It is heterogeneous in the fact that there are multiple tiny nodules measuring in their largest diameter 0.38, 0.35, 0.22, and 0.56 cm. There mya very tiny amount of tissue on the left side grossly measuring transversely 0.6 x 0.5 cm. It also looks a little heterogeneous but there is only a tiny amount of tissue. I do not think this has changed very much. I do not think we will need another ultrasound on this patient but I have sent her for a T4, T3, andTSH to be sure that she is not becoming hypothyroid. Will notify herif there is a change in her regimen. Signed by Mike Mueller MD 11/14/2008 11:34 Mike Mueller MD [facility] livestock caretaker - Mike Mueller MD - RICHY Job ID: [id number] Doc ID: [id number] cc: Jermaine Ho DO *[facility], [place], [place]* TFTs are ok 11/08/2008 11:14 T4, Free 1.1 ng/dL 0.8-1.8 Final * 11/08/2008 11:14 T3, Total 94 ng/dL 60-181 Final * 11/08/2008 11:14 Thyroid Antibodies Final * 11/08/2008 11:14 Anti Thyroglobulin <20 IU/mL 0-40 Final * 11/08/2008 11:14 Thyroperoxidase Ab <10 IU/mL <35 Final * 11/08/2008 11:14 TSH 3.46 uIU/m... 0.35-5.00 Final * documented in this encounter Plan of Treatment Not on filedocumented as of this encounter Visit Diagnoses Not on filedocumented in this encounter
--- OUTSIDE RECORDS SUMMARY | 2022-03-28 01:02 | XMS_ITS | Encounter Summary ---
:1955 Author Organization [facility] Address [address] [place] [address] Care Team Providers Name Role Phone Juanita Prescott MD Primary Care Provider Encounter Details Date Type Department Care Team Description 07/02/2005 Hospital Encounter [facility] - Weston Watson MD [address] [address] [address] [place] [address] (Wo rk) Social History Tobacco Use Types Packs/Day Years Used Date Never Assessed Sex Assigned at Date Recorded Not on file documented as of this encounter Plan of Treatment Not on filedocumented as of this encounter Visit Diagnoses Not on filedocumented in this encounter Care Teams Low Pressure Kettle Operator Relationship Specialty Start Date End Date Juanita Prescott MD PCP - General 11/01/09 [address] [place] [address] documented as of this encounter
--- OUTSIDE RECORDS SUMMARY | 2022-03-28 01:02 | XMS_ITS | Clinical Summary ---
:1955 Author Organization [facility] Address [address] [place] [address] Care Team Providers Name Role Phone Juanita Prescott MD Primary Care Provider Allergies Active Allergy Reactions Severity Noted Date Comments Codeine Hives, Nausea Only, Rash 09/11/2010 Droperidol Muscle Aches 09/11/2010 Muscle spasm Acetaminophen-Codeine Hives, Nausea Only, Rash 011 Medications Medication Sig Dispensed Refills Start Date End Date Status B Complex Vitamins Take 1 Tab by 0 09/11/2010 Active (VITAMIN B COMPLEX) Tab mouth daily. ERGOCALCIFEROL, VITAMIN Take 1 Tab by 0 09/11/2010 Active D2, (VITAMIN D ORAL) mouth 2 times daily. aspirin 81 mg EC tablet Take 81 mg by 0 Active mouth daily. Surgical History Surgery Date Site/Laterality Comments THYROIDECTOMY, PARTIAL Left Medical History Medical History Date Comments Multinodular goiter 06/2005 Thyroiditis 06/2005 Tachycardia 08/2005 while on Cytomel the [facility]is Social History Tobacco Use Types Packs/Day Years Used Date Never Assessed Sex Assigned at Date Recorded Not on file Plan of Treatment Health Maintenance Due Date Last Done Comments Hepatitis C Screen 1955 COVID-19 Vaccine (1) 1960 Fall Risk Screening 2020 Care Teams Psychiatric Tech Relationship Specialty Start Date End Date Juanita Prescott MD PCP - General 11/01/09 [address] [place] [id number]
--- OUTSIDE RECORDS SUMMARY | 2022-03-28 01:02 | XMS_ITS | Clinical Summary ---
:1955 Author Organization [facility] [place] [address] Care Team Providers Name Role Phone Ernestina Daniel DO Primary Care Provider Allergies Active Allergy Reactions Severity Noted Date Comments Codeine Phosphate Medium CIS - Naus ea/Vomiting Droperidol Medium CIS - Laryngosp asm Medications Medication Sig Dispensed Refills Start Date End Date Status b complex vitamins 0 01/25/2010 Active tablet multivitamin 0 01/25/2010 Active (THERAGRAN) tablet Calcium-Magnesium 0 01/25/2010 A ctive (CALCIUM AND MAGNESIUM) 750-465 mg Tab Cholecalciferol, 0 01/25/2010 Ac tive Vitamin D3, (VITAMIN D) 1,000 unit Cap thyroid (ARMOUR 0 01/25/2010 Act sathish THYROID) 60 mg tablet estrogens, conjugated, Taper/Titrate, 0 01/25/2010 Active (PREMARIN) vaginal VagTaper/Titrate, cream Vag. Take Premarin Once daily for 1 Week.Take Premarin twice weekly for 1 Month. Active Problems Problem Noted Date CIS - Dyspareunia 01/25/2010 CIS - Hypothyroidism 09/08/1978 Encounters Date Type Specialty Care Team Description 03/08/2022 Transcribe Orders Primary Care Ernestina Daniel Leuko penia, unspecified B, DO type 03/08/2022 Transcribe Orders Primary Care Ernestina Daniel Other atrophic disorders of skin; B, DO Non-scarring chand ir loss; Congenital icht hyosis from Last 3 Months Social History Tobacco Use Types Packs/Day Years Used Date Never Assessed Sex Assigned at Date Recorded Not on file Plan of Treatment Upcoming Encounters Date Type Specialty Care Team Description 04/03/2022 Office Visit Hematology and Oncology Monique Perea MD [facility] HEMATOLOGY/ONCOL OGY DEPT. [place], [place] [address] (Wo rk) 06/14/2022 Office Visit Dermatology Terrell Galvez MD [facility] [address] [facility] [place], [place] [address] (Wo rk) Health Maintenance Due Date Last Done Comments Covid-19 Vaccine (#1) 1960 Hepatitis C Screening 1973 Tdap adult 1974 Tetanus vaccine 1974 HPV test 1985 PAP Smear 1985 Breast Cancer Share Decision Needed 1995 Colonoscopy 2000 Breast Cancer screening 2005 Zoster vaccine (1 of 2) 2005 Advance Directive 2010 Bone Density Scan 2020 Pneumoccocal Vaccine: 65+ (1 - PCV) 2020 Influenza (Flu) vaccine (1 of 1 - Influenza standard 05/09/2022 series) Insurance Payer Benefit Plan / Subscriber ID Effective Dates Phone Addre ss Type Group AARP MANAGED AARP HMO [id number] 2021-Debra [phone] [address] [address] MEDICARE MANAGED t [address] [place], [place] [id number] Care Teams Post Exchange Manager Relationship Specialty Start Date End Date Ernestina Daniel DO PCP - General Family Medicine 03/08/[address] [place], [place] [id number]
--- OUTSIDE RECORDS SUMMARY | 2022-03-28 01:02 | XMS_ITS | Encounter Summary ---
:1955 Author Organization [facility] Address [address] [place] [address] Care Team Providers Name Role Phone Unavailable Primary Care Provider Unavailable Encounter Details Date Type Department Care Team Description 08/28/2006 Before PRISM Converted [facility] - Debbie Mueller Visit ([place]) Maple conversion MD Thomas [address] [address] [address] [address] [place] [address] Social History Tobacco Use Types Packs/Day Years Used Date Never Assessed Sex Assigned at Date Recorded Not on file documented as of this encounter Progress Notes Mike Mueller MD - 09/14/2009 1500 EST DIVISION OF ENDOCRINOLOGY PROGRESS/FOLLOWUP NOTE - 08/28/2006 SUBJECTIVE: Ms. Young comes in today for evaluation of a multinodular goiter, the left lobe of whichwas removed about 30 years ago. She had an enlargement of the right lobe pushing her trachea to the left and as a consequence it was thought that thyroid suppressive therapy was indicated. In addition to that, she was feeling some symptoms of hypothyroidism, although this could not be proven in the lab. At one time,she was on Cytomel, but had tachycardia. We convinced her finally to stop that and shehas been on 100 mcg of Synthroid with good results at first, but recently has been feeling very tired. In August 2005, free T4 was 0.9 ng/dl and TSH 2.20 micro-international units/ml, but she felt well. No changes were made at that time. She has no diarrhea, jitteriness, excessive perspiration, palpitations, heat or cold intolerance or hair loss. She is taking non-generic Synthroid. The other medications have been updated and reviewed in the chart. OBJECTIVE: Physical examination today reveals that she refused to be weighed, this is not the first time she has done this. BP 138/72, pulse 80. She has no exophthalmos or proptosis. She has no palpable thyroid tissue on the left and it looks like the trachea is displacedtoward that side a bit. She has what feels like normal tissue on the right side. She came in today for a repeat ultrasound. Todays ultrasound is almost exactly as it was last year. ULTRASOUND REPORT: Today, the patients ultrasound shows that there is evidence of partial thyroidectomy, with noleft lobe. The right lobe shows multiple small nodules as previously noted. The measurement of the right lobe is 4.4 x 1.4 x 1.4. There is a small, cystic nodule measuring 0.5 cm and a larger, hypolucent area measuring 0.8 in its largest dimension. This is exactly the same as it measured last year. ASSESSMENT/PLAN: Multinodular goiter, probably euthyroid on thyroid hormone replacement. I am not sure why she has this feeling of fatigue. If she is euthyroid, we will have to look elsewhere. The patient was noted to have some tenderness over the largest nodule. Perhaps she does have thyroiditis orshe bled into this area and that is why it is so hypolucent, I am not really sure. I will not do any other intervention at this time. It is really too small to do an aspiration. I will let her know about her thyroid tests as soon as they are available. Signed by Mike Mueller MD 09/04/2006 12:32 [facility] Diabetes Port[place]Associate Professor of MedicineMike Mueller MD Debbie Mueller MD [facility] tube knitter D: - Mike Mueller MD P - mr Job ID: [id number] Document ID: [id number] cc: Heraclio Prescott MD labs 08/28/2006 12:33 TSH 1.34 uIU/m... 0.35-5.00 Final * 08/28/2006 12:33 T4, Free 1.0 ng/dL 0.8-1.8 Final * 08/28/2006 12:33 T3, Total 105 ng/dL 60-181 Final * 08/28/2006 12:33 T3, Total 105 ng/dL 60-181 Final * documented in this encounter Plan of Treatment Not on filedocumented as of this encounter Visit Diagnoses Not on filedocumented in this encounter
--- OUTSIDE RECORDS SUMMARY | 2022-03-28 01:02 | XMS_ITS | Encounter Summary ---
:1955 Author Organization [facility] Address [address] [place] [address] Care Team Providers Name Role Phone Unavailable Primary Care Provider Unavailable Encounter Details Date Type Department Care Team Description 01/18/2008 Before PRISM Converted [facility] - Debbie Mueller Visit ([place]) Maple conversion MD Thomas [address] [address] [facility] [address] [place] [address] Social History Tobacco Use Types Packs/Day Years Used Date Never Assessed Sex Assigned at Date Recorded Not on file documented as of this encounter Progress Notes Mike Mueller MD - 06/09/2009 0949 EDT DIVISION OF ENDOCRINOLOGY PROGRESS/FOLLOWUP NOTE - 01/18/2008 TEREZA Young comes in today for evaluation of a multinodular goiter. This patient had a hemithyroidectomy many, many years ago. At that point, she was put on thyroid suppressive therapy for the contralateral side. She took this for a long period oftime.However, about four months ago, she discontinuedthe 75 mcg of thyroid hormone replacement. TSH done two weeks ago was 1.16 micro-international units/ml. She has a lot of other stressful things going on in her life and, therefore, did not really notice any episodes of fatigue, constipation, dry skin, and basically does not feel any worse than she did while on the medication. Incidental FSH was done also, which was 123 franck-international units/ml suggesting that she is menopausal. The patient has had repeated ultrasounds to be sure that the contralateral side, with its nodules, does not enlarge. Last year, the right lobe measure 4.4 x 1.4 x 1.4 cm with a 0.8 nodule in its largest diameter seen, and a 0.5 nodule as well. The left lobe could not be measured as there is no tissue there. The patient has no obstructive symptoms of difficulty breathing, cough, sensation of choking, difficulty swallowing, has no symptoms of hyper- or hypothyroidism currently, no constipation, dry skin, heat or cold intolerance, diarrhea, palpitations, excessive perspiration, or tremor. OBJECTIVE On physical examination today, she refused to be weighed, height 5 feet 2 inches, blood pressure 130/90, pulse 60. She has no exophthalmos or proptosis. Thyroid tissue is felt on the right, but none onthe left. There are no tremors, normal deep tendon reflexes, with no hung-up relaxation phase, normal skin temperature, texture and moisture. IMPRESSION Hemithyroidectomy for multinodular goiter. Ultrasound done today again suggests that there is not really much growth in the nodules seen in theright lobe, nor in its full size. The patientright lobe measures 4.4 x 1.6 x 1.3 cm. The largest nodule in the right lobe is inferior near the carotid, which measures 6 x 3 mm. There is asmaller one measuring 2 mm and another one measuring 3 mm. The left lobe could not be demonstrated because of thyroidectomy. Impression is probably residual multinodular goiter, on no therapy. I think the patient could go without therapy. Will be sure that this lobe does not get any bigger inthe next year and then reevaluate her. TSH was done recently and does not have to be repeated today.If she has any difficulty or feels that she needs thyroid hormone, I have asked her to call us before next years reassessment. Signed by Mike Mueller MD 01/25/2008 09:23 Mike Mueller MD [facility] poly area supervisor - Mike Mueller MD - MR Job ID: [id number] Doc ID: [id number] cc: Jermaine Ho DO documented in this encounter Plan of Treatment Not on filedocumented as of this encounter Visit Diagnoses Not on filedocumented in this encounter
--- NOTE | 2022-03-28 08:00 | DI.MAMMO_ITS ---
Exam(s) MAMMO SCREENING EXAM: MAMMO SCREENING CLINICAL HISTORY: screening, Z12.39. TECHNIQUE: Bilateral full field digital CC and MLO mammographic images were obtained with 3D tomosyn thesis and utilizing computer aided detection (CAD). COMPARISON: Prior mammograms were reviewed, the most recent being 2007. FINDINGS: There has been no significant change in the appearance and distribution of the fibroglandular tissue which is moderately dense. There are no CAD designations in either breast There are no new spiculated masses nor malignant appearing microcalcification groups. There is no significant architectural distortion nor skin thickening-retraction. IMPRESSION: Moderately dense fibroglandular tissue. No obvious radiographic evidence of malignancy nor significa nt change compared to 2008. This patient also underwent complete right breast ultrasound following today's mammogram which was ne gative. Please see that separate report BI-RADS Category 2 - Benign Findings Breast Density - Category C - Heterogeneously dense Breast density Category C or D implies that the patient has dense breast tissue. Dense breast tissue can make it harder to find cancer on a mammogram. Dense breast tissue is also associated with an incr eased risk of breast cancer. This information about the result of the mammogram report was provided to the patient to raise their awareness. Use this report when you speak with the patient about their risks for breast cancer, which includes their family history. At that time, you may recommend additional screening tests (Ultrasoun d or MRI) as these tests may add significant information. A negative radiographic report should not delay biopsy if a dominant or clinically suspicious mass is present. Up to ten percent of cancers are not identified on mammography. A negative report may reinforce clinical impression. Adenosis and dense breasts may obscure an underlying neoplasm. False positive reports average 6 to 10%. Patient will receive a letter notifying them of these results.
--- NOTE | 2022-03-28 13:15 | DI.US_ITS ---
Exam(s) US BREAST RT COMPLETE EXAM: US BREAST RT COMPLETE CLINICAL HISTORY: F/U MAMMO. TECHNIQUE: Complete ultrasound of the right breast was performed including all 4 quadrants, the retr oareolar region, and the ipsilateral axilla. COMPARISON: Today's mammogram as well as prior mammograms reviewed. This 66-year-old patient feels some breast pain which she feels might be chest wall. She has not truly sure if she felt an actual l ump. FINDINGS: There is no evidence of solid or significant cystic lesions in all 4 quadrants of the right breast no r in the retroareolar region. At the 1 o'clock position there is a 6 x 4 millimeter benign intramammary lipoma, not clinically sign ificant. No dilated ducts in the retroareolar region. Scanning of the ipsilateral right axilla is negative for adenopathy IMPRESSION: Negative complete right breast ultrasound BI-RADS Category 2 - Benign Findings Breast Density - Category C - Heterogeneously dense Breast density Category C or D implies that the patient has dense breast tissue. Dense breast tissue can make it harder to find cancer on a mammogram. Dense breast tissue is also associated with an incr eased risk of breast cancer. This information about the result of the mammogram report was provided to the patient to raise their awareness. Use this report when you speak with the patient about their risks for breast cancer, which includes their family history. At that time, you may recommend additional screening tests (Ultrasoun d or MRI) as these tests may add significant information. A negative radiographic report should not delay biopsy if a dominant or clinically suspicious mass is present. Up to ten percent of cancers are not identified on mammography. A negative report may reinforce clinical impression. Adenosis and dense breasts may obscure an underlying neoplasm. False positive reports average 6 to 10%. Patient will receive a letter notifying them of these results.
== END ==
PROVIDERS: PCP Student in an Organized Health Care Education/Training Program; Visit Provider Student in an Organized Health Care Education/Training Program
DX: Z12.31 Encounter for screening mammogram for malignant neoplasm of breast (principal); R92.8 Other abnormal and inconclusive findings on diagnostic imaging of breast
CPT/HCPCS: 76642; 77063; 77067

== ENCOUNTER 2022-04-03 12:04 | Outpatient (CLI) | payer MEDICARE, SELFPAY ==
[2022-04-03 14:02] LABS: Abs Immature Grans 0.01 10^3/uL (0.0-0.06); Absolute Basophil Count 0.02 10^3/uL (0.0-0.2); Absolute Eosinophil Count 0.07 10^3/uL (0.0-0.7); Absolute Lymphocyte Count 1.07 10^3/uL (1.2-3.4); Absolute Monocyte Count 0.46 10^3/uL (0.1-0.8); Basophils % 0.4; Eosinophils % 1.5; HCT 40.2 % (36.0-46.0); Immature Grans % 0.2; Lymphocytes % 23.6; MCH 31.6 pg (27.0-33.0); MCHC 32.3 % (32.0-36.0); MCV 98 fL (80-95); MPV 9.8 fL (8.0-11.0); Monocytes % 10.2; Neutrophils % 64.1; Platelet Count 235 10^3/uL (130-400); RBC 4.12 10^6/uL (3.93-5.22); RDW-SD 46.7 fL; WBC 4.53 10^3/uL (4.4-10.8)
[2022-04-03 14:19] LABS: ALT 29 U/L (14-59); AST 22 U/L (15-37); Albumin 4.3 g/dL (3.4-5.0); Alkaline Phosphatase 94 U/L (46-116); Anion Gap 3.9 mmol/L (3-11); BUN 24 mg/dL (7-18); Bilirubin, Total 0.3 mg/dL (0.2-1.0); CO2 30.1 mmol/L (21.0-32.0); CREATININE 0.7 mg/dL (0.55-1.02); Calcium 9.1 mg/dL (8.5-10.1); Chloride 102 mmol/L (98-107); Glucose 110 mg/dL (74-106); Potassium 4.4 mmol/L (3.5-5.1); Sodium 136 mmol/L (136-145); Total Protein 7.6 g/dL (6.4-8.2)
== END 2022-04-03 12:05 | disposition home or self-care (01) ==
LOC: LBO 12:07
PROVIDERS: PCP Student in an Organized Health Care Education/Training Program; Visit Provider Internal Medicine Hematology & Oncology
DX: D72.819 Decreased white blood cell count, unspecified (principal)
CPT/HCPCS: 36415; 80053; 85025

== ENCOUNTER 2022-04-10 03:26 | Outpatient (CLI) | payer MEDICARE, SELFPAY ==
[2022-04-10 11:43] LABS: Abs Immature Grans 0.01 10^3/uL (0.0-0.06); Absolute Basophil Count 0.02 10^3/uL (0.0-0.2); Absolute Lymphocyte Count 1.05 10^3/uL (1.2-3.4); Absolute Monocyte Count 0.38 10^3/uL (0.1-0.8); Absolute Neutrophil Count 1.89 10^3/uL (1.2-6.7); Basophils % 0.6; Eosinophils % 2.9; HCT 38.8 % (36.0-46.0); HGB 12.5 g/dL (11.2-15.7); Immature Grans % 0.3; Lymphocytes % 30.4; MCH 31.8 pg (27.0-33.0); MCHC 32.2 % (32.0-36.0); MCV 99 fL (80-95); MPV 10.4 fL (8.0-11.0); Neutrophils % 54.8; Platelet Count 220 10^3/uL (130-400); RBC 3.93 10^6/uL (3.93-5.22); RDW-SD 47.6 fL; WBC 3.45 10^3/uL (4.4-10.8)
[2022-04-10 12:05] LABS: ALT 32 U/L (14-59); AST 21 U/L (15-37); Alkaline Phosphatase 87 U/L (46-116); BUN 23 mg/dL (7-18); Bilirubin, Total 0.4 mg/dL (0.2-1.0); CREATININE 0.7 mg/dL (0.55-1.02); Calcium 9.1 mg/dL (8.5-10.1); Chloride 102 mmol/L (98-107); Glucose 97 mg/dL (74-106); Potassium 4.3 mmol/L (3.5-5.1); Sodium 136 mmol/L (136-145); Total Protein 7.2 g/dL (6.4-8.2)
[2022-04-11 14:15] LABS: Leukemia/Lymphoma by FC (Blood (See below)
== END 2022-04-10 03:27 | disposition home or self-care (01) ==
LOC: LBO 03:26
PROVIDERS: PCP Student in an Organized Health Care Education/Training Program; Visit Provider Internal Medicine Hematology & Oncology
DX: D72.819 Decreased white blood cell count, unspecified (principal)
CPT/HCPCS: 36415; 80053; 88185; 85025; 88184; 88189

== ENCOUNTER 2022-06-03 02:56 | Outpatient (CLI) | payer MEDICARE, SELFPAY ==
[2022-06-03 13:53] LABS: HCT 40.5 % (36.0-46.0); HGB 13.2 g/dL (11.2-15.7); MCH 31.7 pg (27.0-33.0); MCHC 32.6 % (32.0-36.0); MCV 97 fL (80-95); MPV 9.6 fL (8.0-11.0); Platelet Count 225 10^3/uL (130-400); RBC 4.17 10^6/uL (3.93-5.22); RDW-SD 46.3 fL
[2022-06-03 15:01] LABS: Iron 139 ug/dL (50-170); Total Iron Binding Capacity 377 ug/dL (250-450); Transferrin Sat 37 % (15-50)
[2022-06-03 15:28] LABS: Folate 15.8 ng/mL (8.6-20.0); Vitamin B12 463 pg/mL (193-986)
== END 2022-06-03 02:57 | disposition home or self-care (01) ==
LOC: LBO 02:56
PROVIDERS: PCP Student in an Organized Health Care Education/Training Program; Visit Provider Student in an Organized Health Care Education/Training Program
DX: M85.80 Other specified disorders of bone density and structure, unspecified site (principal); E46 Unspecified protein-calorie malnutrition
CPT/HCPCS: 36415; 85027; 82607; 82746; 83540; 83550

== ENCOUNTER 2022-07-16 22:09 | Emergency (ER) | payer MEDICARE, SELFPAY ==
[2022-07-16 22:28] VITALS: BP 154/118; PULSE 85; RESP 20; TEMP 36.8; O2SAT 100
--- NOTE | 2022-07-16 23:15 | RT.EKG_ITS ---
APPROVED REPORT Exam: Resting ECG Reason for Exam: lightheaded Patient Location: E HR:72 bpm ECG Measurements Heart Rate 72 AXIS MO 159 P -14 QRSd 85 QRS -29 QT 392 T 52 QTc 429 Conclusion Sinus rhythm...normal P axis, V-rate 60- 99 LVH with secondary repolarization abnormality...multi-LVH criteria, abnrm ST-T
--- NOTE | 2022-07-16 23:15 | DI.CT_ITS ---
Exam(s) CT HEAD WO EXAM: CT HEAD WO CLINICAL HISTORY: dizziness. TECHNIQUE: Imaging Protocol: Axial computed tomography images with coronal and sagittal reformatted images were created and reviewed COMPARISON: No exams were available for comparison FINDINGS: Ventricles and Extra axial spaces: Normal in size and morphology for the patient's age. Hemorrhage: None. Cerebral parenchyma: Normal. Midline shift: None. Brainstem/Cerebellum: Normal. Calvarium: Normal. Visualized Paranasal sinuses/Mastoids: Clear. Soft Tissues: Unremarkable. IMPRESSION: No acute intracranial process. RADIATION DOSE DELIVERED: 630.24mGy.cm Total DLP DATA REPOSITORY: All CT scans at this facility are submitted to the National Radiology Data Registry (NRDR) Dose Index Registry (DIR) with the [employer] (ACR). RADIATION OPTIMIZATION: All CT scans at this facility use at least one of these dose optimization te chniques: automated exposure control; mA and/or kV adjustment per patient size (includes targeted exa ms where dose is matched to clinical indication); or iterative reconstruction.
--- NOTE | 2022-07-16 23:26 | ED.GENADUL_ITS ---
Discharge Plan Disposition Patient Disposition: HOME Condition: Stable Discharge Details Clinical Impression: Essential (primary) hypertension, Dizziness Primary Care Provider: Ernestina Daniel ED Provider: Donte Berg Home Meds and New Rx's Prescriptions: New meclizine 25 mg tablet 25 mg PO TID PRN (Reason: dizziness) Qty: 30 0RF Continued magnesium glycinate 100 mg tablet 200 mg PO DAILY cholecalciferol (vitamin D3) 125 mcg (5,000 unit) capsule 125 mcg PO DAILY Probiotic 3 billion cell capsule 3,000 mmu cells PO DAILY Rx Instructions: administer with a meal Discharge Instructions Instructions: Dizziness (ED) Additional Instructions: your blood work, chest xray and cat scan did not show concerning findings at this time follow up with your primary care provider within 1 week for a recheck of your blood pressure. if you feel more ill, have severe worsening symptoms or changes in vision or speech or have weakness in the arms or legs return to the emergency department Medical Decision Making 66 yo female who has a history of htn but hasn't started medicine for it, hypothyroidism, comes in with complaint of dizziness. She states she woke up feeling dizzy and unsteady on her feet. This lasted all day and she had several episodes of n/v. she states turning her head makes it worse but has the dizziness most of the time even without head movements. She denies speech or vision changes, no unilateral weakness, no numbness. She arrives stable, is laying on the stretcher during exam. She is caox4, clear speech, no focal motor or sensation deficits, perrl, no facial assymmetry, nih of 0 on my exam though during extraocular movements she gets very dizzy and has to close her eyes. She does have nystagmus when looking to the right. She denies any chest pain or dyspnea, no abdominal pain. Her symptoms could be due to vertigo but also cva though is outside the window for tpa and her nih is 0. Will obtain ct head, cbc, cmp and reassess. labs and imaging unremarkable, she remains stable. Is able to ambulate unassisted. Discussed findings with her and suspect peripheral vertigo, has had htn on previous pcp visits so suspect she has htn and offered to start her on medication but she declined and wants to f/u with her pcp for this. I discussed also admitting her for observation and possible mri though unlikely cva which she also declines and has capacity to make her own decisions. Given her lack of neuro deficits and no vertical nystagmus, improvement with meclizine and normal gait do not feel she needs to leave ama and is reasonable to go home and f/u with her pcp. She was given strict return precautions Differential Diagnosis Differential Diagnosis: vertigo, cva, Imaging Data Radiologic Study: Attestation: I personally reviewed and interpreted this imaging study as follows: Imaging: X-Ray My impression: no acute findings Radiologic Study #2: Attestation: I personally reviewed and interpreted this imaging study as follows: Imaging: CT Scan Radiologist's impression: no acute findings Lab Data Lab results reviewed: Yes I reviewed the patient's lab results. ECG Data Attestation: I personally reviewed and interpreted this ECG (s) as follows: Prior ECG tracings: not available for review Interpretation: sinus rhythm, rate of 72, pr 159, lvh, no stemi HPI General Date/Time Provider Initiated Documentation: 07/16/22 22:11 . Limitations to Documentation: no limitations . Information obtained by: patient . History of Present Illness 66 year old F presents to the emergency department with the chief complaint of dizzy, described as moderate, Patient started experiencing this hour(s) (14) and it has been constant. Movement worsens symptoms . Patient notes no other symptoms.. Patient did receive the following treatments prior to arrival, none Related Data Home Medications Medication Instructions Recorded Confirmed cholecalciferol (vitamin D3) 125 125 mcg PO DAILY 02/28/22 05/31/22 mcg (5,000 unit) capsule lactobacillus combination no.4 3 3,000 mmu cells PO DAILY 02/28/22 05/31/22 billion cell capsule (Probiotic) magnesium glycinate 100 mg tablet 200 mg PO DAILY 02/28/22 05/31/22 meclizine 25 mg tablet 25 mg PO TID PRN dizziness #30 tabs 07/17/22 Previous Rx's Medication Instructions Recorded meclizine 25 mg tablet 25 mg PO TID PRN dizziness #30 tabs 07/17/22 Allergies Allergy/AdvReac Type Severity Reaction Status Date / Time droperidol AdvReac Severe Verified 07/17/22 00:02 General Stated Complaint: GenMedical REJI: 4 Review of Systems All systems reviewed & are unremarkable except as noted in HPI and below Constitutional Constitutional: Denies chills, Denies fever(s) and Denies weakness ENT Ears, Nose, Mouth, and Throat: Denies change in voice Cardiovascular Cardiovascular: Denies chest pain and Denies dyspnea Respiratory Respiratory: Denies cough and Denies dyspnea Gastrointestinal Gastrointestinal: Denies abdominal pain Genitourinary Genitourinary: Denies dysuria Integumentary/Breasts Skin/Breast: Denies rash Neurologic Neurologic: Denies weakness PFSH All Active Problems (Updated 07/17/22 @ 00:39 by Donte Berg MD) Dizziness (Acute) Muscular deconditioning (Acute) Numbness of lip (Acute) Numbness and tingling of both feet (Acute) Numbness and tingling in both hands (Acute) Nocturnal leg cramps (Acute) Vegetarian diet (Acute) Skin aging (Acute) Significant changes in 2 yrs (~ lyme dz??) Osteopenia (Acute) per DEXA (lifeline screening) .. has since chnaged diet, exercise .. 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 Family History Brother Asthma Cancer Brain Diabetes Hypertension Father Prostate cancer Hypertension Paternal Cousin Breast cancer Two 1st cousins on father's side. Social History Smoking/Tobacco Use Status: Never Second Hand Exposure: No Smoking risk assessment performed?: Yes Alcohol Intake: current Alcohol Intake frequency: 0-2 drinks per day Drug use: Occasionally Substance use type: marijuana Details: edibles Adopted: No Caregiver/Support person: No Household members: spouse Housing: house Number of Children: 2 number of grandchildren: 0 Communication Needs: None Education Level: high school Do you need help understanding health information?: Never current occupation: Retired Pets and animals: Yes (1 each) Pets and animals: cat(s), dog(s), horse(s) and other Details: Rabbit Sexually active: No Do you think of yourself as: straight/heterosexual Current gender identity: female What is your relationship status?: How often do you talk on the phone with friends or family?: three or more times per week How often do you get together with friends or relatives?: three or more times per week Do you belong to any clubs or organized social groups?: no Panel score (0-1 are the most socially isolated patients): 2 What type of physical activity do you participate in: walking Duration: 45-60 minutes/day Frequency: 5-6 times per week Camryn/Yarsani: None Special camryn needs: No Seatbelt use: always Helmet use: Yes Helmet use: always Drive intox or ride w/intox commercial trailer truck driver: No Do you feel safe at home: Yes Do you feel safe in your relationship?: Yes Exam Const General: no acute distress Orientation: alert HENND Head: normal to inspection Ears: external ears normal General nose exam: external nose normal Mouth: moist mucous membranes Eyes General: appearance normal, both eyes and all related structures Neck Neck: normal visual inspection Resp Effort & Inspection: normal respiratory effort and able to speak in complete sentences Cardio Rate: regular rate GI Palpation: soft and nontender Skin General skin exam: no rashes or lesions noted Neuro General: patient alert and patient oriented x3 Extrem General: normal to inspection Psych Mental Status: mental status grossly normal Course Vital Signs Vital signs: Vital Signs Temperature 36.8 C 07/16/22 22:28 Pulse 85 07/16/22 22:28 Respiratory Rate 20 07/16/22 22:28 Blood Pressure 154/118 H 07/16/22 22:28 Pulse Oximetry 100 07/16/22 22:28 Temperature 36.8 C 07/16/22 22:28 Temperature Source Oral 07/16/22 22:28 Pulse 85 07/16/22 22:28 Respiratory Rate 20 11/08/22 22:28 Blood Pressure 154/118 H 07/16/22 22:28 Blood Pressure Position Sitting 07/16/22 22:28 Pulse Oximetry 100 07/16/22 22:28 Oxygen Delivery Method Room Air 07/16/22 22:28 Oxygen Flow Rate 0 07/16/22 22:28 Pain Level 0 07/16/22 22:28
--- NOTE | 2022-07-16 23:30 | DI.RAD_ITS ---
Exam(s) XR CHEST 1V IN DI DEPT EXAM: XR CHEST 1V IN DI DEPT CLINICAL HISTORY: lightheaded TECHNIQUE: 2D digital imaging was performed of the chest. One image was obtained. An AP view was ob tained. COMPARISON: No exams were available for comparison FINDINGS: MEDIASTINUM: Normal. HEART: Normal. PULMONARY VASCULATURE: Normal. LUNGS: Clear. PLEURAL SPACE: No pleural effusion or pneumothorax. BONE:Within normal limits for the patient's age. OTHER FINDINGS:Normal. IMPRESSION: No acute pulmonary findings. DATA REPOSITORY: RADIATION DOSE DELIVERED:
[2022-07-16] MEDS: Meclizine 25 MG TAB PO (23:43)
[2022-07-16 23:47] LABS: Abs Immature Grans 0.01 10^3/uL (0.0-0.06); Absolute Basophil Count 0.02 10^3/uL (0.0-0.2); Absolute Eosinophil Count 0.02 10^3/uL (0.0-0.7); Absolute Monocyte Count 0.27 10^3/uL (0.1-0.8); Absolute Neutrophil Count 2.49 10^3/uL (1.2-6.7); Basophils % 0.6; Eosinophils % 0.6; HCT 39.7 % (36.0-46.0); HGB 13.4 g/dL (11.2-15.7); Immature Grans % 0.3; Lymphocytes % 17.6; MCH 32.2 pg (27.0-33.0); MCHC 33.8 % (32.0-36.0); MCV 95 fL (80-95); MPV 9.7 fL (8.0-11.0); Monocytes % 7.9; Platelet Count 211 10^3/uL (130-400); RBC 4.16 10^6/uL (3.93-5.22); RDW 12.7 % (11.7-14.6); RDW-SD 44.7 fL; WBC 3.41 10^3/uL (4.4-10.8)
[2022-07-17 00:13] LABS: ALT 25 U/L (14-59); AST 20 U/L (15-37); Albumin 4.2 g/dL (3.4-5.0); Alkaline Phosphatase 98 U/L (46-116); Anion Gap 9.8 mmol/L (3-11); BUN 15 mg/dL (7-18); Bilirubin, Total 0.5 mg/dL (0.2-1.0); CO2 28.2 mmol/L (21.0-32.0); CREATININE 0.6 mg/dL (0.55-1.02); Chloride 103 mmol/L (98-107); Estimated GFR 98.93 (mL/min/1.73m2); Glucose 146 mg/dL (74-106); Potassium 3.7 mmol/L (3.5-5.1); Sodium 141 mmol/L (136-145); Total Protein 7.6 g/dL (6.4-8.2); Troponin I < 50 ng/L (<or=60)
--- NOTE | 2022-07-17 00:20 | DI.VRAD_ITS ---
PROCEDURE INFORMATION: Exam: XR Chest Exam date and time: 07/17/2022 12:17 AM Age: 66 years old Clinical indication: Other: Lightheaded TECHNIQUE: Imaging protocol: Radiologic exam of the chest. Views: 1 view. COMPARISON: No relevant prior studies available. FINDINGS: Lungs: Unremarkable. No consolidation. Pleural spaces: Unremarkable. No pleural effusion. No pneumothorax. Heart/Mediastinum: Unremarkable. No cardiomegaly. Bones/joints: Unremarkable. IMPRESSION: No acute findings. Dictated and Authenticated by: Donte Allan MD. Ordering:EVAN Kent MD
--- NOTE | 2022-07-17 00:20 | DI.VRAD_ITS ---
PROCEDURE INFORMATION: Exam: CT Head Without Contrast Exam date and time: 07/17/2022 12:06 AM Age: 66 years old Clinical indication: Stroke-like symptoms; Ataxia; Additional info: Dizziness TECHNIQUE: Imaging protocol: Computed tomography of the head without contrast. Radiation optimization: All CT scans at this facility use at least one of these dose optimization techniques: automated exposure control; mA and/or kV adjustment per patient size (includes targeted exams where dose is matched to clinical indication); or iterative reconstruction. Other technique: STROKE PROTOCOL was implemented. COMPARISON: US THYROID 11/22/2021 3:06 PM FINDINGS: Brain: Normal. No hemorrhage. Unremarkable white matter. No mass effect. Cerebral ventricles: No ventriculomegaly. Paranasal sinuses: Visualized sinuses are unremarkable. No fluid levels. Mastoid air cells: Visualized mastoid air cells are well aerated. Bones/joints: Unremarkable. No acute fracture. Soft tissues: Unremarkable. IMPRESSION: No acute intracranial abnormality. ASSESSMENT: ASPECTS ([place] Stroke Program Early CT Score) is 10. Dictated and Authenticated by: Donte Allan MD. Ordering:EVAN Kent MD
[2022-07-17 00:27] VITALS: RESP 15
[2022-07-17 00:45] VITALS: BP 125/72; PULSE 72; RESP 16; TEMP 36.3; O2SAT 99
== END 2022-07-17 00:46 | disposition home or self-care (01) ==
PROVIDERS: Emergency Provider Emergency Medicine; PCP Student in an Organized Health Care Education/Training Program
DX: I10 Essential (primary) hypertension (principal); R42 Dizziness and giddiness
CPT/HCPCS: 36415; 80053; 93005; 99284; 70450; 71045; 83735; 84484; 85025; 93010; 99285

== ENCOUNTER 2022-08-06 08:53 | Outpatient (CLI) | payer MEDICARE, SELFPAY | END 2022-08-06 08:54 | disposition home or self-care (01) | LOC: CARDOPNVT 08:53 | PROVIDERS: PCP Student in an Organized Health Care Education/Training Program; Visit Provider Student in an Organized Health Care Education/Training Program | DX: I10 Essential (primary) hypertension (principal); I51.7 Cardiomegaly; R42 Dizziness and giddiness | CPT/HCPCS: 93246 ==

== ENCOUNTER 2022-09-05 07:26 | Outpatient (CLI) | payer MEDICARE, SELFPAY ==
--- NOTE | 2022-09-05 12:39 | W.CARDEVENT ---
Date of service: 09/05/22 Time of Service: 12:40 Cardiac Event Recorder Referring Provider:: Ernestina Daniel Indications:: Dizziness Cardiac Event Note: This is a 14-day cardiac event monitor Predominant rhythm was sinus with an average heart rate of 75. Minimum was 51, maximum 146 There were very rare isolated atrial and ventricular ectopic beats There were several brief self-limited atrial runs. The longest of these was 12 beats in duration Patient's symptoms were reported. These corresponded to sinus rhythm, rate 69, sinus rhythm at 90 but had no correlation to any dysrhythmia
== END 2022-09-05 07:27 | disposition home or self-care (01) ==
LOC: CARDOPNVT 07:26
PROVIDERS: PCP Student in an Organized Health Care Education/Training Program; Visit Provider Internal Medicine Cardiovascular Disease
DX: I49.8 Other specified cardiac arrhythmias (principal)
CPT/HCPCS: 93248

== ENCOUNTER 2022-09-16 16:05 | Outpatient (CLI) | payer MEDICARE, SELFPAY ==
--- NOTE | 2022-09-16 14:00 | DI.US_ITS ---
APPROVED REPORT EXAM: Comprehensive 2D, Doppler, and color-flow Echocardiogram Patient Location: Out-Patient Fleet Manager: Greta Mcneal RDCS (AE) Indications: Evaluate function,LVH, HTN, Dizziness, Cardiomegaly Other Information Study Quality: Good Conclusion Normal left ventricular wall thickness and chamber size. Estimated ejection fraction is 60%. Wall m otion is normal Normal right ventricular size and systolic function Both atria are normal in size Aortic valve is trileaflet with mild regurgitation Normal tricuspid valve with mild regurgitation Normal mitral valve with mild regurgitation Mildly dilated ascending aorta measuring 3.51 cm Wall motion Left Ventricle The left ventricle is normal size. The left ventricular systolic function is normal. The left ventric ular ejection fraction is within the normal range. There is normal left ventricular wall thickness. T here is normal LV segmental wall motion. There is no ventricular septal defect visualized. LVEF is 60 %. Right Ventricle The right ventricle is normal size. The right ventricular systolic function is normal. The RVSP is 22 .7 mmHg. Atria The left atrium size is normal. The right atrium size is normal. The interatrial septum is intact wit h no evidence for an atrial septal defect. Aortic Valve The aortic valve is normal in structure. Aortic valve is trileaflet. There is no aortic valvular sten osis. Mild aortic regurgitation. Mitral Valve The mitral valve is normal in structure. No evidence of mitral valve stenosis. Mild mitral regurgita tion. Tricuspid Valve The tricuspid valve is normal in structure. There is no tricuspid valve stenosis. Mild tricuspid regu rgitation. Pulmonic Valve The pulmonary valve is normal in structure. There is no pulmonic valvular stenosis. Trace pulmonic re gurgitation. Great Vessels The aortic root is normal in size. The ascending aorta is mildly dilated. Aortic arch is normal in ca liber. IVC is normal in size and collapses >50% with inspiration. Pericardium There is no pericardial effusion. 2D Dimensions IVSD d PLAX 0.80 cm F: 0.6-1.0 LV Vol A2C d MOD 111.1 mL LVPW d PLAX 0.86 cm F: 0.6 - 1.0 LV Vol A4C d MOD 99.0 mL LVID d PLAX 4.96 cm F: 3.8 - 5.2 LA vol/ BSA A2C s A-L 49.2 mL/m2 LVDs 3.30 cm F: 2.2 - 3.5 LA vol/ BSA A4C s A-L 39.3 mL/m2 Ao Root d 2.92 cm F: 2.7 - 3.3 LA Vol/ BSA Biplane s A-L 44.8 mL/m2 RA Area A4C 17.27 cm2 LA Area A4C s MOD 19.25 cm2 RA Vol/ BSA A4C s A-L 31.6 mL/m2 LA Area A2C s MOD 21.14 cm2 Ao Asc Diam d 3.51 cm F: 2.3 - 3.1 LV EF A4C MOD 60.4 % LV EF Teichholz 60.9 % LV EF A2C MOD 59.5 % LVEF (Galo's) 60.66 % F: 54 - 74 LV EF Biplane MOD 60.7 % LV Volume 90.63 mL F: 46 - 106 SV 65.25 mL LV Volume Index 62.07 mL/m2 F: 29 - 61 SV Index 44.71 mL/m2 LV Vol Biplane MOD 107.6 mL FS 32.70 % M-Mode TAPSE 2.41 cm (M/F) >1.7 LV Diastology MV E' medial 0.079 (>0.07 m/s) E/A Ratio 1.1 LV E/e MED 9.40 (<14) MV E Vmax 0.75 (0.4-1.3 m/s) MV E' lateral 0.101 (>0.1 m/s) MV A Vmax 0.70 (0.4-1.3 m/s) LV E/e LAT 7.35 (<14) MV E/A Ratio 1.01 MV E/E' medial 9.40 MV E/E' lateral 7.36 Aortic Valve LVOT Area 2.85 cm2 AoV Area Vmax 2.38 cm2 LVOT Vmax 1.14 m/s AoV Area/ BSA (Vmax) 1.63 cm2/m2 LVOT Mean Rogelio. 0.70 m/s ОЛЕГ Mean Rogelio. 2.05 cm2 LVOT Peak Grad 5.2 mmHg ОЛЕГ Mean Rogelio. Index 1.40 cm2/m2 LVOT Mean Grad 2.4 mmHg LVOT VTI 0.262 m LVOT Diam s 1.90 cm AoV Vmax 1.36 m/s Velocity Ratio 0.84 AoV Mean Rogelio. 0.98 m/s AoV Peak Grad 7.4 mmHg LVOT SV 74.57 mL AoV Mean Grad 4.2 mmHg AoV VTI 0.302 m AoV Area VTI 2.47 cm2 AoV Area/ BSA (VTI) 1.69 cm/m2 Mitral Valve MV DT 210 (160-240 msec) MV PHT 61 msec MV Area PHT 3.61 cm2 MV VTI 0.337 m MV Area VTI 2.21 (4.0-6.0 cm2) Pulmonary Valve PV Vmax 0.84 (0.5-1.5 m/s) RVOT Peak Gr. 1.44 mmHg PV Peak Grad 2.8 mmHg RVOT Mean Gr. 0.75 mmHg PV Mean Grad 1.6 mmHg RVOT VTI 0.143 m PV VTI 0.180 m RVOT Vmax 0.60 m/s Tricuspid Valve TR Peak Grad 19.7 mmHg TR Vmax 2.22 m/s RA Pressure 3.00 mmHg RVSP (TR) 22.7 mmHg
== END 2022-09-16 16:25 ==
LOC: DI 16:06
PROVIDERS: PCP Student in an Organized Health Care Education/Training Program; Visit Provider Student in an Organized Health Care Education/Training Program
DX: I10 Essential (primary) hypertension (principal); I51.7 Cardiomegaly; R42 Dizziness and giddiness
CPT/HCPCS: 93306

== ENCOUNTER → 2022-09-24 11:13 | Outpatient (BNVA) | payer MEDICARE, SELFPAY | PROVIDERS: PCP Student in an Organized Health Care Education/Training Program; Referring Provider Student in an Organized Health Care Education/Training Program; Visit Provider Internal Medicine Cardiovascular Disease | DX: R42 Dizziness and giddiness (principal); I10 Essential (primary) hypertension | CPT/HCPCS: 93005; 99203; 99214 ==

== ENCOUNTER 2022-09-24 11:16 | Outpatient (CLI) | payer MEDICARE, SELFPAY ==
--- NOTE | 2022-09-24 11:15 | RT.EKG_ITS ---
APPROVED REPORT Exam: Resting ECG Reason for Exam: cardiac evaluation, LVH Patient Location: O HR:79 bpm ECG Measurements Heart Rate 79 AXIS IN 167 P 36 QRSd 95 QRS -35 QT 368 T 72 QTc 422 Conclusion Sinus rhythm...normal P axis, V-rate 50- 99 Left axis
== END 2022-09-24 11:17 | disposition home or self-care (01) ==
LOC: DI.CARD 11:18
PROVIDERS: PCP Student in an Organized Health Care Education/Training Program; Visit Provider Internal Medicine Cardiovascular Disease
DX: I10 Essential (primary) hypertension (principal); R42 Dizziness and giddiness
CPT/HCPCS: 93010

== ENCOUNTER 2022-10-30 01:26 | Outpatient (CLI) | payer MEDICARE, SELFPAY ==
--- NOTE | 2022-10-30 08:15 | DI.US_ITS ---
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 TECHNIQUE: Ultrasound was performed using standard protocol. COMPARISON: No exams were available for comparison FINDINGS: Sonographic assessment utilizing grayscale and color Doppler imaging was performed and targeted to th e area of clinical concern. There appears to be a defect in the anterior abdominal wall. The defect measures approximately 0.2 c m. There does appear to be small amount of fluid and echogenic material protruding through the defec t. The echogenic material likely reflects fat. The findings are suspicious for a fat and fluid cont aining anterior abdominal wall hernia. IMPRESSION: Findings suspicious for a fat and fluid containing anterior abdominal wall hernia. A CT scan of the abdomen may be considered for further evaluation. DATA REPOSITORY:
== END 2022-10-30 01:46 ==
LOC: DI 01:26
PROVIDERS: PCP Student in an Organized Health Care Education/Training Program; Visit Provider Student in an Organized Health Care Education/Training Program
DX: D17.1 Benign lipomatous neoplasm of skin and subcutaneous tissue of trunk (principal); K43.9 Ventral hernia without obstruction or gangrene
CPT/HCPCS: 76705

== ENCOUNTER 2022-11-14 01:52 | Outpatient (CLI) | payer MEDICARE, SELFPAY ==
--- NOTE | 2022-11-14 07:00 | DI.US_ITS ---
Exam(s) US THYROID EXAM: US THYROID CLINICAL HISTORY: annual re-check,F/U THYROID NODULE,E04.1. TECHNIQUE: Ultrasound thyroid performed using standard protocol. COMPARISON: US US THYROID from 11/22/2021 FINDINGS: ISTHMUS: No isthmus visible. RIGHT LOBE: Size: 5.4 x 1.7 x 1.8 cm Echogenicity: Heterogeneous Vascularity: Normal. Nodules: No suspicious discrete nodules. LEFT LOBE: No thyroid tissue identified. IMPRESSION: Heterogeneous right lobe of the thyroid. No suspicious nodules. No further follow-up recommended. Apparent agenesis of the left lobe of the thyroid. DATA REPOSITORY:
== END 2022-11-14 02:12 ==
LOC: DI 01:53
PROVIDERS: PCP Student in an Organized Health Care Education/Training Program; Visit Provider Student in an Organized Health Care Education/Training Program
DX: E04.1 Nontoxic single thyroid nodule (principal)
CPT/HCPCS: 76536

== ENCOUNTER 2022-11-27 01:54 | Outpatient (CLI) | payer MEDICARE, SELFPAY ==
--- NOTE | 2022-11-27 06:45 | DI.CT_ITS ---
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 No focal consolidating infiltrates are. Liver: Normal density. No measurable mass. Portal, Superior Mesenteric, and Splenic Veins: Unremarkable. Gallbladder and Biliary Tract: Cholelithiasis. There is no biliary ductal dilatation. Pancreas: There is a 0.7 x 0.6 cm hypodense lesion in the uncinate process of the pancreas inferior t o the common bile duct. Spleen: Normal. Adrenals: No masses seen. Kidneys: Normal size, contour and axis. There is a nonobstructing 3 mm stone in the left kidney. No masses seen. Abdominal Aorta: Abdominal portion non-dilated. Atherosclerosis is present. Bowel: No obstruction or bowel wall thickening. A small portion of the appendix is visualized and is unremarkable. Peritoneal Cavity: No ascites, collection or mesenteric inflammatory response. No free air. Lymph Nodes: Within normal limits. Bones: Unremarkable. Soft Tissues: There is a small fat containing midline anterior abdominal wall hernia. It lies at the upper level of the rectus abdominus musculature. This corresponds to the sonographic abnormality se en on 10/30/2022. IMPRESSION: 1. Small midline upper anterior abdominal wall hernia. This corresponds to the sonographic finding s een on 10/30/2022. 2. 0.7 x 0.6 cm hypodense lesion in the uncinate process of the pancreas. A pre and postcontrast MRI of the pancreas is recommended for further evaluation. RADIATION DOSE DELIVERED: 279.83mGy.cm Total DLP DATA REPOSITORY: All CT scans at this facility are submitted to the National Radiology Data Registry (NRDR) Dose Index Registry (DIR) with the [employer] ([employer]). RADIATION OPTIMIZATION: All CT scans at this facility use at least one of these dose optimization te chniques: automated exposure control; mA and/or kV adjustment per patient size (includes targeted exa ms where dose is matched to clinical indication); or iterative reconstruction.
[2022-11-27] MEDS: Barium Sulfate 2% W/V-Berry Smoothie 450 ML BTL PO (09:01)
[2022-11-27 10:06] LABS: COMMENT (LAB VIEW ONLY) 150.74 mg/dL; PROTEIN 15.9 mg/dL
[2022-11-27 10:09] LABS: Anion Gap 5.1 mmol/L (3-11); BUN 12 mg/dL (7-18); CO2 30.9 mmol/L (21.0-32.0); CREATININE 0.7 mg/dL (0.55-1.02); Calcium 9.2 mg/dL (8.5-10.1); Chloride 107 mmol/L (98-107); Estimated GFR 94.73 (mL/min/1.73m2); Glucose 108 mg/dL (74-106); Potassium 4.5 mmol/L (3.5-5.1); Sodium 143 mmol/L (136-145); TSH (W/Ref FT4) 2.36 uIU/mL (0.36-3.74)
[2022-11-27 10:09] LABS: COMMENT (LAB VIEW ONLY) 149.37 mg/dL; Microalb ug/mg Crea 8.6 ug/mg Cr
[2022-11-27] MEDS: Omnipaque 350 MG/ML 500 ML BTL-Imaging package IJ (10:26)
[2022-11-27] MEDS: Normal Saline - Diluent 50 ML VIAL IJ (10:28)
== END 2022-11-27 02:14 ==
LOC: DI 01:55
PROVIDERS: PCP Student in an Organized Health Care Education/Training Program; Visit Provider Student in an Organized Health Care Education/Training Program
DX: K43.9 Ventral hernia without obstruction or gangrene (principal); K80.20 Calculus of gallbladder without cholecystitis without obstruction; K86.89 Other specified diseases of pancreas; N20.0 Calculus of kidney; I10 Essential (primary) hypertension; E03.9 Hypothyroidism, unspecified; R20.2 Paresthesia of skin; R79.89 Other specified abnormal findings of blood chemistry; D17.1 Benign lipomatous neoplasm of skin and subcutaneous tissue of trunk
CPT/HCPCS: 80048; 74160; 82043; 82565; 82570; 84156; 84443

== ENCOUNTER → 2022-12-02 12:40 | Outpatient (BNVA) | payer MEDICARE, SELFPAY | PROVIDERS: PCP Student in an Organized Health Care Education/Training Program; Referring Provider Student in an Organized Health Care Education/Training Program; Visit Provider Surgery | DX: K43.9 Ventral hernia without obstruction or gangrene (principal); K86.9 Disease of pancreas, unspecified | CPT/HCPCS: 99203; 99213 ==

== ENCOUNTER 2022-12-19 01:05 | Outpatient (CLI) | payer MEDICARE, SELFPAY ==
[2022-12-19] MEDS: Gadoterate meglumine 20 ML VIAL IVP (09:52)
--- NOTE | 2022-12-19 15:05 | DI.MRI_ITS ---
Exam(s) MR ABDOMEN WO/W EXAM: MR ABDOMEN WO/W CLINICAL HISTORY: Pancreatic lesion on CT scan, Pancreatic protocol TECHNIQUE: Multiplanar multisequence MRI of the Abdomen was performed. MRCP sequences also performed. COMPARISON: CT CT ABDOMEN W from 11/27/2022 FINDINGS: Lung bases: Clear. Liver: Unremarkable. Gallbladder: A few tiny stones noted Bile Ducts: Unremarkable. Pancreas: Unremarkable. No mass or cyst. No inflammation. Adrenals: Unremarkable. Kidneys: Unremarkable. Spleen: Normal size. Tiny cyst. Aorta: Unremarkable. Soft Tissues: Small amount of fat at the umbilicus. Small fatty containing upper abdominal wall nancy ia. Bone: Tarlov cysts sacral region. Degenerative disc changes lower lumbar spine. Lymph Nodes: Unremarkable. Mesentery: No ascites. No focal fluid collection. Bowel: Large quantity of stool. No abnormal dilatation or wall thickening. IMPRESSION: Normal MR of the Abdomen. No evidence of pancreatic mass. The findings on CT are likely artifactual. Cholelithiasis, otherwise normal MRCP. DATA REPOSITORY:
== END 2022-12-19 01:25 ==
LOC: DI 01:06
PROVIDERS: PCP Student in an Organized Health Care Education/Training Program; Visit Provider Surgery
DX: K86.89 Other specified diseases of pancreas (principal); K43.9 Ventral hernia without obstruction or gangrene; K80.20 Calculus of gallbladder without cholecystitis without obstruction
CPT/HCPCS: 74183

== ENCOUNTER 2023-04-02 03:43 | Outpatient (CLI) | payer MEDICARE, SELFPAY ==
[2023-04-02 11:37] LABS: Abs Immature Grans 0.01 10^3/uL (0.0-0.06); Absolute Basophil Count 0.02 10^3/uL (0.0-0.2); Absolute Eosinophil Count 0.06 10^3/uL (0.0-0.7); Absolute Lymphocyte Count 1.12 10^3/uL (1.2-3.4); Absolute Monocyte Count 0.29 10^3/uL (0.1-0.8); Absolute Neutrophil Count 1.45 10^3/uL (1.2-6.7); Basophils % 0.7; HCT 41.5 % (36.0-46.0); HGB 13.7 g/dL (11.2-15.7); Immature Grans % 0.3; MCH 31.9 pg (27.0-33.0); MCV 97 fL (80-95); MPV 9.5 fL (8.0-11.0); Monocytes % 9.8; Neutrophils % 49.2; Platelet Count 227 10^3/uL (130-400); RBC 4.29 10^6/uL (3.93-5.22); RDW 12.8 % (11.7-14.6); RDW-SD 45.4 fL; WBC 2.95 10^3/uL (4.4-10.8)
[2023-04-02 11:47] LABS: Hemoglobin A1C 5.3 % (<5.7)
[2023-04-02 11:55] LABS: ALT 23 U/L (14-59); AST 21 U/L (15-37); Albumin 4.2 g/dL (3.4-5.0); Alkaline Phosphatase 84 U/L (46-116); Anion Gap 6.9 mmol/L (3-11); BUN 12 mg/dL (7-18); Bilirubin, Total 0.6 mg/dL (0.2-1.0); CO2 30.1 mmol/L (21.0-32.0); CREATININE 0.8 mg/dL (0.55-1.02); Chloride 105 mmol/L (98-107); Estimated GFR 80.71 (mL/min/1.73m2); Glucose 94 mg/dL (74-106); Potassium 4.1 mmol/L (3.5-5.1); Sodium 142 mmol/L (136-145); Total Protein 7.4 g/dL (6.4-8.2)
[2023-04-03 14:23] LABS: Leukemia/Lymphoma by FC (Blood (See below)
== END 2023-04-02 03:44 | disposition home or self-care (01) ==
PROVIDERS: PCP Student in an Organized Health Care Education/Training Program; Visit Provider Internal Medicine Hematology & Oncology
DX: D72.819 Decreased white blood cell count, unspecified (principal); R73.09 Other abnormal glucose
CPT/HCPCS: 36415; 80053; 88185; 83036; 85025; 88184; 88189

== ENCOUNTER 2023-07-28 20:47 | Emergency (ER) | payer MEDICARE, SELFPAY ==
--- NOTE | 2023-07-28 20:45 | DI.RAD_ITS ---
Exam(s) XR TIB/FIB LT XR KNEE LT 2V AP,LAT EXAM: XR KNEE LT 2V AP,LAT and XR tib/fib LT CLINICAL HISTORY: leg injury. TECHNIQUE: 2D digital imaging was performed of the left tib/fib and knee. Four images were obtained . AP and lateral views were obtained. COMPARISON: There are no priors for comparison. FINDINGS: BONES: There is an acute minimally depressed lateral tibial plateau fracture best appreciated on the tibia/fibula films. No bony destructive lesion is seen. JOINTS: The knee is normally aligned. There is a moderate size hemarthrosis. No loose body. SOFT TISSUE: Normal. IMPRESSION: 1. Minimally depressed lateral tibial plateau fracture. 2. Moderate size hemarthrosis. DATA REPOSITORY: RADIATION DOSE DELIVERED:
[2023-07-28 20:46] VITALS: BP 169/114; PULSE 98; RESP 18; TEMP 37.1; O2SAT 97
[2023-07-28] MEDS: Ondansetron 4 MG/2 ML VIAL IVP ×2 (21:06→23:52)
--- NOTE | 2023-07-28 21:18 | W.ED.GENAD ---
Discharge Plan Disposition Patient Disposition: Home Discharge Details Clinical Impression: Closed fracture of left tibial plateau Primary Care Provider: Ernestina Daniel ED Provider: Anthony Barker Home Meds and New Rx's Prescriptions: New oxycodone-acetaminophen [Percocet] 5-325 mg tablet 1 tab PO Q4H PRN (Reason: pain) Qty: 20 0RF ondansetron 4 mg tablet,disintegrating 4 mg PO Q8H PRN (Reason: nausea and vomiting) Qty: 30 0RF docusate sodium [Colace] 100 mg capsule 100 mg PO BID Qty: 14 0RF No Action cholecalciferol (vitamin D3) 125 mcg (5,000 unit) capsule 125 mcg PO DAILY Probiotic 3 billion cell capsule 3,000 mmu cells PO DAILY Rx Instructions: administer with a meal magnesium glycinate 100 mg tablet 400 mg PO DAILY vitamin B complex Capsule 1 cap PO BID cardiotone PO osvaldo extract PO Hold Instructions: Pt Stopped/Never Started vitamin k 2 PO capsicum (cayenne) 447 mg capsule PO C Complex 1,000 mg tablet extended release 1,000 mg PO DAILY arjuna astragalus root 470 mg capsule PO Discharge Instructions Instructions: Leg Fracture (ED), Crutch Instructions (ED) Additional Instructions: Take pain medication as needed. Can also use Motrin every 6 hours. Take Zofran as needed with narcotic pain medication. Take Colace as prescribed to avoid constipation while using narcotic pain medicine Keep leg in knee immobilizer keep it elevated as much as possible. Use ice on the area. Apply ice for 10 to 15 minutes every hour that you are awake. Use crutches to ambulate, do not put any weight on your left leg The orthopedic surgeon will contact you tomorrow to schedule follow-up. Referrals: Manoj Cornejo MD [ [facility] STAFF PHYSICIAN] - Medical Decision Making Emergent evaluation of acute traumatic left leg pain. Initial differential includes fracture, contusion, less likely vascular injury the patient has a good pulse. Will place IV and pain control. We will get imaging of the area and reassess. 2149: X-ray imaging reviewed and independently interpreted, there is a joint effusion and fracture concerning for tibial plateau. I reevaluated the patient and she is having more increased swelling and joint effusion. Compartments are still soft, neurovascularly intact. Leg was elevated and iced. I discussed the case with orthopedic surgery who recommends getting a CT scan. 2330 CT scan obtained and reviewed. Consistent with hemarthrosis and tibial plateau fracture. A knee immobilizer has been applied and patient has been provided crutches. At this time there is no indication for hospitalization. Patient will go home on crutches with nonweightbearing status. Orthopedic surgery will contact her tomorrow to establish definitive follow-up plan. The patient was prescribed Percocet as needed for severe pain along with Zofran and Colace to take with this medication. All questions answered. Discharged in good condition. Medical Records Medical records reviewed: Yes I reviewed the patient's medical records. Lab Data Lab results reviewed: Yes I reviewed the patient's lab results. HPI General Date/Time Provider Initiated Documentation: 07/28/23 20:52. Limitations to Documentation: no limitations. Information obtained by: patient. HPI Narrative: 67-year-old female with past medical history including hypothyroidism, hypertension presents for evaluation of acute onset left leg pain. Just prior to arrival she was walking with her horse when the horse decided to roll. And when he rolled he knocked her down and he rolled over her left leg. She reports that the horse weighs about 1000 pounds. She reports the pain is in the anterior part of her left lower leg and around her left knee. Pain is severe, constant. She has not been able to bear weight. She has not had any pain medications prior to arrival. There are no other injuries during the fall. Related Data Home Medications Medication Instructions Recorded Confirmed cholecalciferol (vitamin D3) 125 125 mcg PO DAILY 02/28/22 07/28/23 mcg (5,000 unit) capsule lactobacillus combination no.4 3 3,000 mmu cells PO DAILY 02/28/22 07/28/23 billion cell capsule (Probiotic) cardiotone PO 08/09/22 01/17/23 osvaldo extract PO 08/09/22 01/17/23 capsicum (cayenne) 447 mg capsule mg PO 09/24/22 01/17/23 magnesium glycinate 100 mg tablet 400 mg PO DAILY 09/24/22 07/28/23 vitamin k 2 PO 09/24/22 01/17/23 vitamin B complex 1 cap PO BID 12/02/22 07/28/23 arjuna 07/28/23 ascorbic acid (vitamin C) 1,000 mg 1,000 mg PO DAILY 07/28/23 07/28/23 tablet,extended release (C Complex) astragalus root 470 mg capsule mg PO 07/28/23 docusate sodium 100 mg capsule 100 mg PO BID #14 caps 07/28/23 (Colace) ondansetron 4 mg disintegrating 4 mg PO Q8H PRN nausea and 07/28/23 tablet vomiting #30 tabs oxycodone-acetaminophen 5 mg-325 1 tab PO Q4H PRN pain #20 tabs 07/28/23 mg tablet (Percocet) Previous Rx's Medication Instructions Recorded docusate sodium 100 mg capsule 100 mg PO BID #14 caps 07/28/23 (Colace) ondansetron 4 mg disintegrating 4 mg PO Q8H PRN nausea and 07/28/23 tablet vomiting #30 tabs oxycodone-acetaminophen 5 mg-325 1 tab PO Q4H PRN pain #20 tabs 07/28/23 mg tablet (Percocet) Allergies Allergy/AdvReac Type Severity Reaction Status Date / Time codeine Allergy Intermediate rash Verified 07/28/23 21:09 droperidol AdvReac Severe Verified 07/28/23 21:09 General Stated Complaint: Orthopedic REJI: 3 PFSH All Active Problems (Updated 07/28/23 @ 23:29 by Anthony Barker MD) Closed fracture of left tibial plateau (Acute) Lesion of pancreas (Acute) Hernia of abdominal wall (Acute) US showing: a fat and fluid containing anterior abdominal wall hernia Lipoma of abdominal wall (Acute) Muscular deconditioning (Acute) Numbness of lip (Acute) Numbness and tingling of both feet (Acute) Numbness and tingling in both hands (Acute) Nocturnal leg cramps (Acute) Vegetarian diet (Acute) Skin aging (Acute) Significant changes in 2 yrs (~ lyme dz??) Osteopenia (Acute) per DEXA (lifeline screening) .. has since changed diet, exercise .. Thyroid nodule (Acute) Neg, 11/2022.. 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 Essential (primary) hypertension (Acute) Remains elevated (ave ~ 130/90), prefers no meds .. [ ] meditation, lifestyle Medical History Leukopenia very mild chronic, Oncology visit 04/03/22 Hx of Lyme disease Cough, unspecified (~02/08/19) Hemorrhoids (~02/08/19) Lyme disease (08/14/21) Surgical History H/O: section (~1986) S/P thyroid surgery (~1974) Left lobe agenesis; Rt lobe nodule excised (1976-) ... Family History Brother Asthma Cancer Brain Diabetes Hypertension Father Prostate cancer Hypertension Paternal Cousin Breast cancer Two 1st cousins on father's side. Social History Smoking/Tobacco Use Status: Never Second Hand Exposure: No Smoking risk assessment performed?: Yes Alcohol Intake: current Alcohol Intake frequency: 0-2 drinks per day Drug use: Occasionally Substance use type: does not use Details: edibles Adopted: No Caregiver/Support person: No Household members: spouse Housing: house Number of Children: 2 number of grandchildren: 0 Communication Needs: None Education Level: high school Do you need help understanding health information?: Never current occupation: Retired Pets and animals: Yes (1 each) Pets and animals: cat(s), dog(s), horse(s) and other Details: Rabbit Sexually active: No Do you think of yourself as: straight/heterosexual Current gender identity: female What is your relationship status?: How often do you talk on the phone with friends or family?: three or more times per week How often do you get together with friends or relatives?: three or more times per week Do you belong to any clubs or organized social groups?: no Panel score (0-1 are the most socially isolated patients): 2 What type of physical activity do you participate in: walking Duration: 45-60 minutes/day Frequency: 5-6 times per week Camryn/Orthodoxy: None Special camryn needs: No Seatbelt use: always Helmet use: Yes Helmet use: always Drive intox or ride w/intox driver license examiner: No Do you feel safe at home: Yes Do you feel safe in your relationship?: Yes Exam Narrative Exam Narrative: Review of Systems: All systems reviewed & are unremarkable except as noted in HPI and below: CONSTITUTIONAL: Alert and oriented Well-developed, no acute distress HEENT: NACT MOUTH Moist MM NECK: Symmetric, trachea midline, No thyromegaly THROAT oropharynx clear CVS: RRR, No murmurs or gallops. Peripheral pulses 2+ and equal in all extremities Brisk capillary refill in all extremities. No peripheral edema RESP: Unlabored respiratory effort, Clear to auscultation bilaterally No wheezes rales or rhonchi GI: Soft, Nontender, Nondistended, No organomegaly MSK: Pelvis stable, nontender, left femur and thigh nontender, left knee with tenderness, bruising, no instability or effusion appreciated, there is tenderness deformity to the proximal lower leg, calf soft, neurovascularly intact, 2+ pulse SKIN: Warm, Dry. No rashes or lesions. NEURO: No focal neurologic deficits. Course Vital Signs Vital signs: Vital Signs Temperature 37.1 C 07/28/23 20:46 Pulse 98 H 07/28/23 20:46 Respiratory Rate 18 07/28/23 20:46 Blood Pressure 169/114 H 07/28/23 20:46 Pulse Oximetry 97 07/28/23 20:46 Temperature 37.1 C 07/28/23 20:46 Temperature Source Temporal Artery Scan 07/28/23 20:46 Pulse 98 H 07/28/23 20:46 Respiratory Rate 18 07/28/23 20:46 Respiratory Effort Normal 07/28/23 20:53 Blood Pressure 169/114 H 07/28/23 20:46 Blood Pressure Position Supine 07/28/23 20:46 Pulse Oximetry 97 07/28/23 20:46 Oxygen Delivery Method Room Air 07/28/23 20:46 Oxygen Flow Rate 0 07/28/23 20:46 Pain Level 4 07/28/23 20:46 PAWSS Have you Been Recently Intoxicated or Drunk Within the Last 30 days?: No Have you Ever Experienced Previous Episodes of Alcohol Withdrawal?: No Have you ever Experienced Withdrawal Seizures?: No Have you ever Experienced Delirium Tremens(DT)s?: No Have you ever undergone Alcohol Rehabilitation Treatment (i.e, inpt ot outpatient treatment programs)?: No Have you ever Experienced Blackouts?: No Have you ever Combined Alcohol with other Downers within the last 90 days?: No Have you ever Combined Alcohol with any other Substance of Abuse during the last 90 days?: No Positive Blood Alcohol level on Presentation? [PCS.BAL]: No Evidence of Increased Autonomic Activity (i.e. HR>120, tremor, sweating, agitation, nausea)?: No Result: 0
--- NOTE | 2023-07-28 21:45 | DI.CT_ITS ---
Exam(s) CT LOWER EXTREMITY LT WO EXAM: CT LOWER EXTREMITY LT WO CLINICAL HISTORY: eval fracture. TECHNIQUE: Imaging Protocol: Axial computed tomography images with coronal and sagittal reformatted images were created and reviewed. COMPARISON: CR,XR XR TIB/FIB LT from 07/28/2023 CR,XR XR KNEE LT 2V AP,LAT from 07/28/2023 FINDINGS: Bones: There is a acute comminuted lateral tibial plateau fracture with less than 3 mm of depression . Bony alignment is satisfactory. No cellulitic or osteomyelitic changes are identified. There is no evidence of joint space narrowing or cystic degeneration seen. No lytic or sclerotic lesions are i dentified. There is a hemarthrosis in the suprapatellar joint space present. Soft Tissues: There is a small popliteal cyst. IMPRESSION: 1. Schatzker type 1 lateral tibial plateau fracture. 2. Moderate hemarthrosis. RADIATION DOSE DELIVERED: Total DLP Total DLP Total DLP DATA REPOSITORY: All CT scans at this facility are submitted to the National Radiology Data Registry (NRDR) Dose Index Registry (DIR) with the [employer] (ACR). RADIATION OPTIMIZATION: All CT scans at this facility use at least one of these dose optimization te chniques: automated exposure control; mA and/or kV adjustment per patient size (includes targeted exa ms where dose is matched to clinical indication); or iterative reconstruction.
--- NOTE | 2023-07-28 22:19 | DI.VRAD_ITS ---
Addendum created by Caio Cosby MD on 07/28/2023 10:22:06 PM EST: Probable fracture of the lateral tibial plateau present on patient's lower extremity films not visualized on this study. Initial report created on 07/28/2023 10:18:56 PM EST: PROCEDURE INFORMATION: Exam: XR Left Knee Exam date and time: 07/28/2023 9:35 PM Age: 67 years old Clinical indication: Injury or trauma; Fall; Blunt trauma; Knee; Left; Injury date: 07/28/23; Injury details: Horse fell on leg TECHNIQUE: Imaging protocol: Radiologic exam of the left knee. Views: 1 or 2 views. COMPARISON: No relevant prior studies available. FINDINGS: Bones/joints: Bone mineralization is age-appropriate. There is no evidence of fracture. No evidence of dislocation. There is a probable small effusion at the femorotibial joint. There is a fat fluid level present within the suprapatellar bursa which may represent hemarthrosis. Soft tissues: No radiopaque foreign body present. There is soft tissue swelling present. IMPRESSION: 1. No acute osseous abnormality. 2. There is soft tissue swelling present. 3. There is a fat fluid level present within the suprapatellar bursa which may represent hemarthrosis. 4. There is a probable small effusion at the femorotibial joint. Dictated and Authenticated by: Caio Cosby MD. Ordering:AYESHA Trivedi MD
--- NOTE | 2023-07-28 22:21 | DI.VRAD_ITS ---
PROCEDURE INFORMATION: Exam: XR Left Tibia and Fibula Exam date and time: 07/28/2023 9:36 PM Age: 67 years old Clinical indication: Injury or trauma; Fall; Blunt trauma; Lower leg; Left; Injury date: 07/28/23; Injury details: Horse fell on leg TECHNIQUE: Imaging protocol: Radiologic exam of the left tibia and fibula. Views: 2 views. COMPARISON: CR XR KNEE LT 2V AP,LAT 07/28/2023 9:35 PM FINDINGS: Bones/joints: Bone mineralization is age-appropriate. Probable fracture of the lateral tibial plateau not visualized on the patient's knee films. No evidence of dislocation. Soft tissues: No radiopaque foreign body present. There is soft tissue swelling present. Fat fluid level consistent with hemarthrosis within the suprapatellar bursa. Joint effusion at the femorotibial joint. IMPRESSION: 1. Probable fracture of the lateral tibial plateau not visualized on the patient's knee films. 2. Fat fluid level consistent with hemarthrosis within the suprapatellar bursa. Joint effusion at the femorotibial joint. 3. There is soft tissue swelling present. Dictated and Authenticated by: Caio Cosby MD. [facility]
[2023-07-28 23:02] VITALS: BP 164/88; PULSE 88; RESP 14; O2SAT 95
--- NOTE | 2023-07-28 23:06 | DI.VRAD_ITS ---
PROCEDURE INFORMATION: Exam: CT Left Lower Extremity With Contrast, Knee Exam date and time: 07/28/2023 10:45 PM Age: 67 years old Clinical indication: Injury or trauma; Fall; Blunt trauma; Knee; Left TECHNIQUE: Imaging protocol: CT of the left lower extremity with intravenous contrast was performed. Exam focused on the knee. COMPARISON: XR KNEE LT 2V AP,LAT 07/28/2023 9:35 PM FINDINGS: Bones/joints: There is a Schatzker type 1 fracture of the lateral tibial plateau. There is a depression fracture of the tibial plateau. There is fat fluid level consistent with hemarthrosis within the suprapatellar bursa. There is a small joint effusion at the femorotibial joint. The distal femur appears intact. The fibula appears intact. Soft tissues: Normal. IMPRESSION: 1. There is a Schatzker type 1 fracture of the lateral tibial plateau. 2. There is fat fluid level consistent with hemarthrosis within the suprapatellar bursa. There is a small joint effusion at the femorotibial joint. Dictated and Authenticated by: Caio Cosby MD. Ordering:[facility] Mj Trivedi MD
--- NOTE | 2023-07-28 23:48 | NUR.NOTE ---
Knee immobilizer applied to L knee. PMS intact distal to knee. PT tolerated well. PT was given crutch training. PT ambulated in room with no issues. PT stated that she felt confident using the crutches at home. Nursing Note:
[2023-07-29 00:34] VITALS: BP 131/82; PULSE 88; RESP 18; O2SAT 98
--- NOTE | 2023-07-29 07:16 | NUR.NOTE ---
Accessed pt chart to determine diagnosis for [facility] billing. Nursing Note:
== END 2023-07-29 00:34 | disposition home or self-care (01) ==
PROVIDERS: Emergency Provider Emergency Medicine; PCP Student in an Organized Health Care Education/Training Program
DX: M25.562 Pain in left knee (principal); S82.142A Displaced bicondylar fracture of left tibia, initial encounter for closed fracture; W55.19XA Other contact with horse, initial encounter; I10 Essential (primary) hypertension; E03.9 Hypothyroidism, unspecified
CPT/HCPCS: 27530; 29505; 96374; 96375; 96376; 99284; 73560; 73590; 73700; J2405

== ENCOUNTER 2023-08-04 15:09 | Outpatient (CLI) | payer MEDICARE, SELFPAY ==
--- NOTE | 2023-08-04 15:00 | DI.RAD_ITS ---
Exam(s) XR KNEE LT 2V AP,LAT EXAM: XR KNEE LT 2V AP,LAT CLINICAL HISTORY: LEFT TIBIAL PLATEAU FX. TECHNIQUE: 2D digital imaging was performed of the left knee. Two images were obtained. AP and lat eral views were obtained. COMPARISON: CR,XR XR TIB/FIB LT from 07/28/[address] LOWER EXTREMITY LT WO from 07/28/2023 CR,XR XR KNEE LT 2V AP,LAT from 07/28/2023 FINDINGS: BONES: There has been no significant change in alignment of the lateral tibial plateau fracture. Th e fracture was best appreciated on the CT scan of the knee. No new fracture is seen. No bony destru ctive lesion is seen. JOINTS: The knee is normally aligned. There is a small joint effusion. Mild spurring is seen at the posterior patella. No loose body. SOFT TISSUE: Normal. IMPRESSION: Stable alignment of the lateral tibial plateau fracture. DATA REPOSITORY: RADIATION DOSE DELIVERED:
== END 2023-08-04 15:10 | disposition home or self-care (01) ==
LOC: DIORS 15:09
PROVIDERS: PCP Student in an Organized Health Care Education/Training Program; Referring Provider Student in an Organized Health Care Education/Training Program; Visit Provider Student in an Organized Health Care Education/Training Program
DX: S82.142D Displaced bicondylar fracture of left tibia, subsequent encounter for closed fracture with routine healing; X58.XXXD Exposure to other specified factors, subsequent encounter
CPT/HCPCS: 99213; 73560

== ENCOUNTER 2023-08-11 16:03 | Outpatient (CLI) | payer MEDICARE, SELFPAY ==
--- NOTE | 2023-08-11 15:00 | DI.RAD_ITS ---
Exam(s) XR KNEE LT 2V AP,LAT EXAM: XR KNEE LT 2V AP,LAT CLINICAL HISTORY: F/U FRACTURE. TECHNIQUE: 2D digital imaging was performed. Two views. COMPARISON: CR XR KNEE LT 2V AP,LAT from 08/04/2023 FINDINGS: BONES: There has been continued healing of the fracture of the lateral tibial plateau. No acute frac ture is present. No bony destructive lesion is seen. JOINTS: The knee is normally aligned. No joint effusion is seen. Joint spaces are maintained. Mini mal periarticular spurring. SOFT TISSUE: Normal. IMPRESSION: Stable alignment and continued healing of the lateral tibial plateau fracture. DATA REPOSITORY: RADIATION DOSE DELIVERED:
== END 2023-08-11 16:04 | disposition home or self-care (01) ==
LOC: DIORS 16:04
PROVIDERS: PCP Student in an Organized Health Care Education/Training Program; Referring Provider Student in an Organized Health Care Education/Training Program
DX: S82.142D Displaced bicondylar fracture of left tibia, subsequent encounter for closed fracture with routine healing (principal); X58.XXXD Exposure to other specified factors, subsequent encounter
CPT/HCPCS: 99213; 73560

== ENCOUNTER → 2023-08-14 16:34 | Outpatient (CLI) | payer MEDICARE, SELFPAY ==
--- NOTE | 2023-08-14 16:00 | DI.US_ITS ---
Exam(s) US LOWER EXTREMITY VENOUS LT EXAM: US LOWER EXTREMITY VENOUS LT CLINICAL HISTORY: r/o DVT, SWELLING, LT LEG PAIN, FRACTURE, R60.9, M79.605, M79.605 TECHNIQUE: Grayscale, color, and doppler imaging of the deep venous system of the left lower extremi ty was performed. COMPARISON: US US THYROID from 11/14/2022 FINDINGS: There is no evidence of intraluminal thrombus and there is normal compression and augmentation demons trated within the common femoral vein, femoral vein, and popliteal vein. In the ipsilateral calf the interrogated veins also exhibit normal compression/ augmentation properti es. The ipsilateral saphenofemoral junction is patent. IMPRESSION: 1. No evidence of DVT in the left lower extremity. DATA REPOSITORY:
== END ==
LOC: DI 16:34
PROVIDERS: PCP Student in an Organized Health Care Education/Training Program; Visit Provider Student in an Organized Health Care Education/Training Program
DX: M79.605 Pain in left leg (principal); R60.9 Edema, unspecified; T14.8XXA Other injury of unspecified body region, initial encounter
CPT/HCPCS: 93971

== ENCOUNTER 2023-09-11 13:04 | Outpatient (CLI) | payer MEDICARE, SELFPAY ==
--- NOTE | 2023-09-11 08:30 | DI.RAD_ITS ---
Exam(s) XR KNEE LT 2V AP,LAT EXAM: XR KNEE LT 2V AP,LAT CLINICAL HISTORY: f/u L tibial plateau fx. TECHNIQUE: 2D digital imaging was performed of the left knee. Two images were obtained. AP and lat eral views were obtained. COMPARISON: CR XR KNEE LT 2V AP,LAT from 08/04/2023 CR XR KNEE LT 2V AP,LAT from 08/11/2023 FINDINGS: BONES: There has been no change in alignment of the lateral tibial plateau fracture. Increased scle rosis is seen in the proximal tibia consistent with some interval healing. No new fractures identifi ed. No bony destructive lesion is seen. JOINTS: The knee is normally aligned. There does appear to be a tiny suprapatellar joint effusion. M inimal degenerative changes are seen at the posterior patella. SOFT TISSUE: Normal. IMPRESSION: Overall stable appearance of the proximal tibial fracture. DATA REPOSITORY: RADIATION DOSE DELIVERED:
== END 2023-09-11 13:05 | disposition home or self-care (01) ==
LOC: DIORS 13:05
PROVIDERS: PCP Student in an Organized Health Care Education/Training Program; Referring Provider Student in an Organized Health Care Education/Training Program; Visit Provider Student in an Organized Health Care Education/Training Program
DX: S82.142D Displaced bicondylar fracture of left tibia, subsequent encounter for closed fracture with routine healing; X58.XXXD Exposure to other specified factors, subsequent encounter
CPT/HCPCS: 99213; 73560

== ENCOUNTER 2023-10-09 15:34 | Outpatient (CLI) | payer MEDICARE, SELFPAY ==
--- NOTE | 2023-10-09 09:45 | DI.RAD_ITS ---
Exam(s) XR KNEE LT 2V AP,LAT EXAM: XR KNEE LT 2V AP,LAT CLINICAL HISTORY: F/U L TIBIAL PLATEAU FX. TECHNIQUE: 2D digital imaging was performed. COMPARISON: CR XR KNEE LT 2V AP,LAT from 09/11/2023 FINDINGS: Two views. Appearance remains stable at the level of the lateral tibial plateau fracture. No further height los s evident nor narrowing of the joint space. Sclerotic horizontal line is noted at the epiphysis-metaphysis junction of the proximal tibia but sli ghtly less evident than previous. Probably related to bone contusion. Mild joint effusion again not ed. IMPRESSION: Stable appearance DATA REPOSITORY: RADIATION DOSE DELIVERED:
== END 2023-10-09 15:35 | disposition home or self-care (01) ==
LOC: DIORS 15:34
PROVIDERS: PCP Student in an Organized Health Care Education/Training Program; Referring Provider Student in an Organized Health Care Education/Training Program; Visit Provider Student in an Organized Health Care Education/Training Program
DX: S82.142D Displaced bicondylar fracture of left tibia, subsequent encounter for closed fracture with routine healing (principal); X58.XXXD Exposure to other specified factors, subsequent encounter
CPT/HCPCS: 99213; 73560

== ENCOUNTER → 2023-11-13 02:41 | Outpatient (CLI) | payer MEDICARE, SELFPAY ==
--- NOTE | 2023-11-13 | DI.US_ITS ---
Exam(s) US THYROID EXAM: US THYROID CLINICAL HISTORY: Evaluate thyroid nodule, HYPOTHYROIDISM, E03.9, E04.1. TECHNIQUE: Ultrasound thyroid performed using standard protocol. COMPARISON: Ultrasound thyroid 11/14/2022 FINDINGS: Again noted is agenesis of the left lobe. RIGHT THYROID LOBE: Measures 1.8 cm AP x 1.7 cm wide x 5.0 cm craniocaudal Two small nodules are again noted in the right lobe. Nodule #1 is located peripherally in the right lobe, with details as below: Size: Measures 0.9 x 0.6 x 0.6 cm Composition: Mixed [id number]-hzpxvm-2 point Echogenicity: Solid component is isoechoic to surrounding parenchyma-1 point Shape: Wider than taller-0 points Margin: Smooth- 0 points Echogenic Foci: Appears to contain a few small punctate echogenic foci-3 points Total Points for this nodule: 5 ACR Ti-Rads Category: TR4 This nodule can be followed as it measures less than 1.5 cm. Nodule #2 is located slightly more inferiorly Size: Measures 0.5 x 0.3 x 0.4 cm Composition: Solid-2 points Echogenicity: Hypoechoic- 2 points Shape: Wider than taller- 0 points Margin: Smooth-0 points Echogenic Foci: None-0 points Total points for this nodule: 4 ACR Ti-Rads Category: TR4 This nodule can be followed as it measures less than 1.5 cm. No significant lymphadenopathy noted. IMPRESSION: 1. Two small right lobe nodules as described above which do not require ultrasound-guided FNA at this time. 2. 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 3. There is no significant lymphadenopathy. DATA REPOSITORY:
== END ==
LOC: DI 02:41
PROVIDERS: PCP Student in an Organized Health Care Education/Training Program; Visit Provider Student in an Organized Health Care Education/Training Program
DX: E03.9 Hypothyroidism, unspecified (principal); E04.1 Nontoxic single thyroid nodule
CPT/HCPCS: 76536

== ENCOUNTER → 2023-12-26 09:09 | Outpatient (BNVA) | payer MEDICARE, SELFPAY | PROVIDERS: PCP Student in an Organized Health Care Education/Training Program; Referring Provider Student in an Organized Health Care Education/Training Program; Visit Provider Physician Assistant | DX: X58.XXXD Exposure to other specified factors, subsequent encounter (principal); S82.142D Displaced bicondylar fracture of left tibia, subsequent encounter for closed fracture with routine healing | CPT/HCPCS: 99213 ==

== ENCOUNTER → 2024-02-11 20:02 | Outpatient (CLI) | payer MEDICARE, SELFPAY ==
--- NOTE | 2024-02-11 14:47 | DI.RAD_ITS ---
Exam(s) XR CHEST 2V PA LATERAL EXAM: XR CHEST 2V PA LATERAL CLINICAL HISTORY: R05.9 cough TECHNIQUE: 2D digital imaging was performed of the chest. Two images were obtained. PA and lateral views were obtained. COMPARISON: CR,XR XR CHEST 1V IN DI DEPT from 07/17/2022 FINDINGS: MEDIASTINUM: Normal. HEART: Normal. PULMONARY VASCULATURE: Normal. LUNGS: Clear. PLEURAL SPACE: No pleural effusion or pneumothorax. BONE:Within normal limits for the patient's age. OTHER FINDINGS:Normal. IMPRESSION: No acute pulmonary findings. DATA REPOSITORY: RADIATION DOSE DELIVERED:
== END ==
PROVIDERS: PCP Student in an Organized Health Care Education/Training Program; Visit Provider Emergency Medicine
DX: R05.8 Other specified cough (principal)
CPT/HCPCS: 71046

== ENCOUNTER 2024-04-07 02:41 | Outpatient (CLI) | payer MEDICARE, SELFPAY ==
[2024-04-07 13:43] LABS: HGB 12.4 g/dL (11.2-15.7); MCH 32.2 pg (27.0-33.0); MCHC 32.6 % (32.0-36.0); MCV 99 fL (80-95); MPV 9.7 fL (8.0-11.0); Platelet Count 218 10^3/uL (130-400); RBC 3.85 10^6/uL (3.93-5.22); RDW 13.1 % (11.7-14.6); RDW-SD 47.5 fL
[2024-04-07 14:11] LABS: ALT 26 U/L (14-59); AST 18 U/L (15-37); Albumin 4.1 g/dL (3.4-5.0); Alkaline Phosphatase 88 U/L (46-116); Anion Gap 8.8 mmol/L (3-11); BUN 13 mg/dL (7-18); Bilirubin, Total 0.26 mg/dL (0.2-1.0); CO2 28.2 mmol/L (21.0-32.0); CREATININE 0.8 mg/dL (0.55-1.02); Calcium 8.8 mg/dL (8.5-10.1); Calculated LDL 100 mg/dL (<100); Chloride 105 mmol/L (98-107); Cholesterol 183 mg/dL (<200); Estimated GFR 80.21 (mL/min/1.73m2); Glucose 102 mg/dL (74-106); HDL Cholesterol 62 mg/dL (40-60); Potassium 4.1 mmol/L (3.5-5.1); Sodium 142 mmol/L (136-145); Total Protein 7.3 g/dL (6.4-8.2); Triglyceride 107 mg/dL (<150)
== END 2024-04-07 02:42 | disposition home or self-care (01) ==
PROVIDERS: PCP Student in an Organized Health Care Education/Training Program; Visit Provider Student in an Organized Health Care Education/Training Program
DX: I10 Essential (primary) hypertension (principal); E03.9 Hypothyroidism, unspecified; Z78.9 Other specified health status; R20.0 Anesthesia of skin; R20.2 Paresthesia of skin; G47.62 Sleep related leg cramps; Z91.89 Other specified personal risk factors, not elsewhere classified; D72.819 Decreased white blood cell count, unspecified; B99.9 Unspecified infectious disease
CPT/HCPCS: 36415; 80053; 80061; 85027

== ENCOUNTER 2024-04-21 01:47 | Outpatient (CLI) | payer MEDICARE, SELFPAY ==
--- NOTE | 2024-04-21 07:30 | DI.MAMMO_ITS ---
Exam(s) MAMMO SCREENING EXAM: MAMMO SCREENING CLINICAL HISTORY: screening,Z12.39 TECHNIQUE: Bilateral full field digital CC and MLO mammographic images were obtained with 3D tomosyn thesis and utilizing computer aided detection (CAD). COMPARISON: Available for comparison. FINDINGS: Masses/Architectural Distortion: There appears to be an increase in size of in the area of nodularity in the inferior left breast on the MLO view measuring 0.8 cm. Microcalcifications: No suspicious pleomorphic-type are seen. Skin Thickening/Nipple Retraction: None. IMPRESSION: 1. Increase in size of an area of nodularity in the inferior left breast on the MLO view. 2. A spot compression views requested for further evaluation. Ultrasound may be indicated at that ti me. BI-RADS Category 0 - Incomplete: Need additional imaging evaluation Breast Density - Category B - Scattered areas of fibroglandular density Breast density category C or D implies that the patient has dense breast tissue. Dense breast tissue is very common and is not abnormal but dense breast tissue can make it harder to find cancer on a ma mmogram. Also, dense breast tissue may increase their breast cancer risk. This information about the result of the mammogram report was provided to the patient to raise their awareness. Use this report when you speak with the patient about their risks for breast cancer, which includes their family hist ory. At that time, you may recommend for more screening tests (Ultrasound or MRI) as they might be us eful based on their risk. A negative radiographic report should not delay biopsy if a dominant or clinically suspicious mass is present. Up to ten percent of cancers are not identified on mammography. A negative report may reinforce clinical impression. Adenosis and dense breasts may obscure an underlying neoplasm. False positive reports average 6 to 10%. Patient will receive a letter notifying them of these results.
== END 2024-04-21 02:07 ==
LOC: DI 01:47
PROVIDERS: PCP Student in an Organized Health Care Education/Training Program; Visit Provider Student in an Organized Health Care Education/Training Program
DX: Z12.31 Encounter for screening mammogram for malignant neoplasm of breast (principal)
CPT/HCPCS: 77063; 77067

== ENCOUNTER 2024-04-22 05:07 | Outpatient (CLI) | payer MEDICARE, SELFPAY ==
[2024-04-22 16:22] LABS: ALT 24 U/L (14-59); AST 18 U/L (15-37); Albumin 4.2 g/dL (3.4-5.0); Alkaline Phosphatase 82 U/L (46-116); Anion Gap 10.4 mmol/L (3-11); BUN 10 mg/dL (7-18); Bilirubin, Total 0.42 mg/dL (0.2-1.0); CO2 27.6 mmol/L (21.0-32.0); CREATININE 0.7 mg/dL (0.55-1.02); Calcium 9.9 mg/dL (8.5-10.1); Chloride 104 mmol/L (98-107); Estimated GFR 94.15 (mL/min/1.73m2); Glucose 95 mg/dL (74-106); Magnesium 2.3 mg/dL (1.8-2.4); Potassium 4.2 mmol/L (3.5-5.1); Sodium 142 mmol/L (136-145); Total Protein 7.2 g/dL (6.4-8.2)
[2024-04-22 18:44] LABS: Vitamin B12 532 pg/mL (193-986)
[2024-04-22 18:49] LABS: Folate > 20.0 ng/mL (8.6-20.0)
== END 2024-04-22 05:08 | disposition home or self-care (01) ==
LOC: LBO 05:07
PROVIDERS: PCP Student in an Organized Health Care Education/Training Program; Visit Provider Student in an Organized Health Care Education/Training Program
DX: I10 Essential (primary) hypertension (principal); Z91.89 Other specified personal risk factors, not elsewhere classified; R71.8 Other abnormality of red blood cells
CPT/HCPCS: 36415; 80053; 82607; 82746; 83735

== ENCOUNTER 2024-04-26 02:54 | Outpatient (CLI) | payer MEDICARE, SELFPAY ==
--- NOTE | 2024-04-26 06:15 | DI.DEXA_ITS ---
Exam(s) XR DEXA BONE DENSITY W/WO CORY EXAM: XR DEXA BONE DENSITY W/WO CORY CLINICAL HISTORY: Evaluate bone density,SCREENING FOR OSTEOPOROSIS,Z78.0,OSTEOPENIA TECHNIQUE: COMPARISON: No exams were available for comparison FINDINGS: Lateral Spine Image: Unremarkable. No compression deformities identified. Left hip: Total T-Score: -1.8. Total Z-Score: -0.4 T- and Z-scores: Findings are consistent with osteopenia. There is osteoporosis in the femoral neck with a T-score of -2.6. Lumbar Spine: Total T-Score: -2.9 Total Z-Score: -0.9 T- and Z-scores: Findings are consistent with osteoporosis. IMPRESSION: Osteoporosis in the lumbar spine and the left femoral neck.
== END 2024-04-26 03:14 ==
LOC: DI 02:54
PROVIDERS: PCP Student in an Organized Health Care Education/Training Program; Visit Provider Student in an Organized Health Care Education/Training Program
DX: M85.89 Other specified disorders of bone density and structure, multiple sites (principal); Z78.0 Asymptomatic menopausal state; Z13.820 Encounter for screening for osteoporosis
CPT/HCPCS: 77080

== ENCOUNTER 2024-04-28 01:07 | Outpatient (CLI) | payer MEDICARE, SELFPAY ==
--- NOTE | 2024-04-28 | DI.US_ITS ---
Exam(s) US BREAST LT LIMITED EXAM: US BREAST LT LIMITED CLINICAL HISTORY: INCREASE IN SIZEOF NODULARITY IN INF LEFT BREAST 0.8 CM TECHNIQUE: Ultrasound left breast performed using standard protocol. COMPARISON: US US BREAST RT COMPLETE from 03/28/2022 FINDINGS: No solid or cystic masses, hypoechoic foci, areas of abnormal shadowing, or areas of skin thickening. IMPRESSION: No sonographically suspicious finding. BI-RADS Category 1 - Negative DATA REPOSITORY:
--- NOTE | 2024-04-28 13:26 | DI.MAMMO_ITS ---
Exam(s) MG MAMMO SCREEN CALL BACK UNI EXAM: MG MAMMO SCREEN CALL BACK UNI CLINICAL HISTORY: Increase in size of nodularity in inferior lt breast measuring 0.8 cm. TECHNIQUE: Craniocaudal and mediolateral oblique spot compression digital Mammography views of the l eftbreast with Tomosynthesis and left breast ultrasound. COMPARISON: 2021 and recent exam 21 April 2024 FINDINGS: Mammography/Tomosynthesis: Masses: None seen. Findings consistent with overlying fibroglandular tissue. Architectural Distortion: None seen. Microcalcifictions: No suspicious pleomorphic-type are seen. Skin Thickening/Nipple Retraction: None. left breast US: Echotexture: Normal appearance of the glandular tissue. Shadowing: No suspicious foci. Cyst: None. Solid lesions: None seen. Ductal dilation: None. IMPRESSION: 1. No evidence of malignancy is noted. 2. Unless there is more urgent need, follow-up screening mammography is recommended, as per [place] [employer] guidelines. 3. The findings were discussed with the patient on the date of the examination. BI-RADS Category 1 - Negative Breast Density - Category C - Heterogeneously dense A mammogram that demonstrates density of C or D indicates the patient's breast tissue is dense. Dense breast tissue is very common and is not abnormal, but dense breast tissue can make it harder to find cancer on a mammogram. Also, dense breast tissue may increase their breast cancer risk. This informa tion about the result of the mammogram report was provided to the patient to raise their awareness. U se this report when you speak with the patient about their risks for breast cancer, which includes th eir family history. At that time, you may recommend for more screening tests (Ultrasound or MRI) as t hey might be useful based on their risk. A negative radiographic report should not delay biopsy if a dominant or clinically suspicious mass is present. Up to ten percent of cancers are not identified on mammography. A negative report may reinforce clinical impression. Adenosis and dense breasts may obscure an underlying neoplasm. False positive reports average 6 to 10%. Patient will receive a letter notifying them of these results.
== END 2024-04-28 01:27 ==
PROVIDERS: PCP Student in an Organized Health Care Education/Training Program; Visit Provider Student in an Organized Health Care Education/Training Program
DX: R92.8 Other abnormal and inconclusive findings on diagnostic imaging of breast (principal); Z12.31 Encounter for screening mammogram for malignant neoplasm of breast
CPT/HCPCS: 76642; 77063; 77067

== ENCOUNTER 2024-07-13 01:21 | Outpatient (CLI) | payer MEDICARE, SELFPAY ==
--- NOTE | 2024-07-13 07:00 | DI.US_ITS ---
Exam(s) US ABDOMEN LIMITED EXAM: US ABDOMEN LIMITED CLINICAL HISTORY: postprandial RUQ pain, evaluate Gallbladder,r10.11 TECHNIQUE: Ultrasound abdomen performed using standard protocol. COMPARISON: CT CT ABDOMEN W from 11/27/2022 FINDINGS: PANCREAS: Normal where visualized. LIVER: Normal. Hepatopetal flow in the Portal Vein. The liver measures in 16.3 cm length. No evidence of a hepatic mass. GALLBLADDER:Mobile gallstones are present. There also echogenic foci seen along the nondependent wal l of the gallbladder consistent with adenomyomatosis. No evidence of wall thickening. No pericholecy stic fluid identified. BILIARY SYSTEM: Common bile duct measures < 7 mm. No intrahepatic biliary ductal dilation. SIMS'S SIGN: Negative. RIGHT KIDNEY: Kidney is normal in size. No evidence of renal calculi. No evidence of hydronephrosis. No renal mass or cyst identified. ASCITES: None seen. IMPRESSION: Cholelithiasis without sonographic evidence of acute cholecystitis. DATA REPOSITORY:
--- NOTE | 2024-07-13 07:30 | DI.US_ITS ---
Exam(s) US HERNIA EXAM: US HERNIA CLINICAL HISTORY: Eval hernia of abd wall for change new postprandial RUQ pain,r10.11,k43.9. TECHNIQUE: Ultrasound was performed using standard protocol. COMPARISON: US US SOFT TISS ABD WALL/LOW BACK from 10/30/2022 FINDINGS: Sonographic assessment utilizing grayscale and color Doppler imaging was performed and targeted to th e area of clinical concern. There is again seen a defect in the abdominal wall consistent with a fat containing hernia. The neck of the hernia measures approximately 6 mm. Using similar measuring techniques on the prior examinat ion this has shown little significant change. Previously a similar image measured 5 mm. IMPRESSION: No significant change in the anterior abdominal wall defect measuring approximately 6 mm. This resul ts in the fat containing abdominal wall hernia. DATA REPOSITORY:
== END 2024-07-13 01:41 ==
LOC: DI 01:21
PROVIDERS: PCP Student in an Organized Health Care Education/Training Program; Visit Provider Student in an Organized Health Care Education/Training Program
DX: K43.9 Ventral hernia without obstruction or gangrene (principal); R10.11 Right upper quadrant pain
CPT/HCPCS: 76857; 76705

== ENCOUNTER 2024-11-10 02:30 | Outpatient (CLI) | payer MEDICARE, SELFPAY ==
--- NOTE | 2024-11-10 07:30 | DI.US_ITS ---
Exam(s) US THYROID EXAM: US THYROID CLINICAL HISTORY: eval THYROID NODULES,E04.1,E03.9,HYPOTHYROIDISM. TECHNIQUE: Ultrasound thyroid performed using standard protocol. 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 RIGHT THYROID LOBE: Measures 1.6 cm AP x 1.9 cm wide x 5.3 cm craniocaudal There are 4 focal findings in the right lobe, 3 of which measure 4 mm have benign appearance. There is a larger solid nodule towards the inferior aspect of the right lobe which measures 1.5 cm (c raniocaudal) x 1.3 x 1.2 cm Characteristics of this nodule are as follows: Composition: Solid-2 points Echogenicity: Nodule is isoechoic to surrounding tissue-1 point Shape: Slightly taller than wider in the transverse plane-3 points Margin: Smooth- 0 points Echogenic Foci: None-0 points Total Points for this nodule: 6 ACR Ti-Rads Category: TR4 This TR 4 level nodule measures 1.5 cm and therefore requires ultrasound-guided FNA. ISTHMUS: Normal thickness. There are no nodules in the isthmus. LYMPH NODES: There is no significant adenopathy. IMPRESSION: 1. There is a solid TR 4 level nodule in the inferior aspect of the right thyroid lobe which should u ndergo ultrasound-guided FNA as it measures 1.5 cm. This isoechoic solid nodule measures larger than previous. 2. 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 3. There is no significant lymphadenopathy. DATA REPOSITORY:
== END 2024-11-10 02:50 ==
LOC: DI 02:30
PROVIDERS: Visit Provider Student in an Organized Health Care Education/Training Program
DX: E04.1 Nontoxic single thyroid nodule (principal); E03.9 Hypothyroidism, unspecified
CPT/HCPCS: 76536